=== PATIENT | female | born 1950 | race Caucasian/White ===

== ENCOUNTER 2022-07-01 06:38 | Day surgery (SDC) | payer MEDICARE, BC, SELFPAY ==
[2022-07-01] VITALS (12 sets, daily range): BP systolic 96–133; BP diastolic 63–88; PULSE 48–62; RESP 16; TEMP 36.5–36.6; O2SAT 92–97; BMI 29.9
--- NOTE | 2022-07-01 07:11 | SUR.PREOP ---
Patient provided home covid negative results to RN.
[2022-07-01] MEDS: SODIUM CHLORIDE 0.9 % (FLUSH) 10 ML SYRINGE IVF (07:25)
[2022-07-01] MEDS: LACTATED RINGERS 1000 ML 1,000 ML 100 ML IV (07:25)
[2022-07-01] MEDS: MIDAZOLAM HCL 1 MG/ML inj IVP (07:28)
[2022-07-01] MEDS: fentaNYL 100 MCG/2 ML inj IVP (07:28)
--- NOTE | 2022-07-01 07:28 | SUR.PREOP ---
TIME?OUT:?0728 PT/RN/MDA?VERIFICATION?OF?SURGICAL?SITE,?PROCEDURE,?AND?CONSENT OBTAINED?PRIOR?TO?INVASIVE?PROCEDURE.
--- NOTE | 2022-07-01 08:00 | CRLHL7_ITS ---
For Patients: As a result of the Cures Act, medical imaging exams and procedure reports are released immediately into your electronic medical record. You may view this report before your referring provider. If you have questions, please contact your health care provider. Indication: ORIF Left Distal Radius Technique: Two fluoroscopic images of the left wrist. Fluoroscopic time 34.2 seconds. IMPRESSION: Fluoroscopic guidance for ORIF distal radial fracture. Dictated by René Wallace MD @ 07/01/2022 9:34:37 AM (Electronically Signed)
[2022-07-01] MEDS: CEFAZOLIN 2 GM in 0.9 % SODIUM CHLORIDE Mini-bag 100 ML IVPB (08:20)
--- NOTE | 2022-07-01 08:25 | W.PM.NB ---
Nerve Block Nerve Block Time Seen by Provider: 07:45 Date Seen: 07/01/22 Type of block requested by surgeon for post-operative analgesia: axillary Side: left Time out performed: Yes Verification of patient name: Yes Verification of date of : Yes Site marking: site marked Name of person performing procedure: wu Continuous monitoring Was continuous monitoring of O2 sat, B/P, monitor and storage bin tender, recorded every 15 minutes?: Yes Procedure Checklist: sterile prep, needles and gloves Ultrasound guided. Images saved: Yes Medications given in 5ml increments after negative aspiration: Ropivicaine %: 0.5 mL: 30 Needle gauge: 22 Decadron (mg): 10 Precedex (mcg): 25 Patient tolerated procedure well: Yes Block Charges Block Charge (with Pro Fee): Axillary Nerve Use of Ultrasound Machine for Block: Yes- US Guidance/pain block
--- NOTE | 2022-07-01 09:17 | P.ORPRC_ITS ---
Procedure Note Date of procedure: 07/01/22 Procedure: PREOPERATIVE DIAGNOSES: 1. Left distal radius fracture extra-articular, comminuted dorsal cortex, dorsally displaced, translated, and angulated along with shortening, unstable POSTOPERATIVE DIAGNOSES: 1. Left distal radius fracture extra-articular, comminuted dorsal cortex, dorsally displaced, translated, and angulated along with shortening, unstable NAME OF OPERATION: 1. Left distal radius open reduction with internal fixation of extra-articular, comminuted, unstable distal radius fracture SURGEON: Ryan Lee MD BEHAVIORAL HEALTH TECHNICIAN: Logan Pittman - Of note, an certified dental assistant was critical for this case to aide in patient positioning, limb manipulation, tissue retraction, closure, and splinting. ANESTHESIA: Supraclavicular block EBL: Less than 25 mL IMPLANTS: Synthes dual column volar locking plate with 1.8 mm distal locking pegs and 2.4 and 2.7 mm locking and nonlocking proximal cortical screws. TOURNIQUET: 40 minutes at 250 torr. INDICATIONS: The patient is a pleasant, 72-year-old female who sustained a left wrist injury after a fall approximately 2 days ago. They had difficulty with use of the extremity and deformity. Workup included xrays which revealed an unstable fracture. Given these findings, surgery was recommended to stablize the fracture. FINDINGS: Closed, comminuted dorsal cortex, dorsally angulated, displaced, and translated along the shortened distal radius fracture. PROCEDURE: Following a thorough discussion of risks, benefits, and alternatives, consent was obtained and the operative extremity was marked. The patient was brought to the operating room and placed supine on the operating table. Induction of anesthesia was achieved. Appropriate time out was performed identifying proper patient, site and procedure. 2 g IV Ancef was administered within 1 hour of incision preoperatively. The left upper extremity was prepped and draped in the appropriate sterile fashion using ChloraPrep prep. The limb was exsanguinated and the tourniquet inflated. A longitudinal incision was made overlying the FCR tendon. Sharp incision through skin and subcutaneous tissue allowed identification of the FCR tendon. The superficial sheath was sharply divided, the tendon retracted ulnarly, and the deep fascial sheath also released. The FPL was retracted ulnarly and the pronator quadratus was sharply released from the radial border of the radius and subperiosteally elevated. The fracture was encountered and cleared of interposed periosteum / fracture hematoma. A reduction was performed and the appropriate plate selected. Temporary stabilization allowed C-arm fluoroscopy to confirm proper fracture reduction and plate positioning. The oblong hole was filled with a nonlocking screw followed by multiple distal locking pegs being careful to keep these in subchondral bone and extraarticular. Finally, the remaining proximal shaft screws were drilled and placed. Fluoroscopic imaging confirmed the improved position and showed the fracture to be stable. At this stage, the wound was thoroughly irrigated with normal saline. Closure performed with 0 Vicryl for the pronator quadratus, followed by deflation of the tourniquet. All major bleeding points were cauterized. Closure was then completed with 3-0 Vicryl for the subcutaneous, and 4-0 statafix for subcuticular closure. Dressings were applied along with a volar/dorsal splint. The patient was awoken from anesthesia and transferred to PACU in stable condition. PLAN: 1. Elevate operative extremity. 2. Ice, acetominphen or ibuprofen PRN. 3. Percocet for pain as needed. 4. Follow up with PA visit in 7-12 days for wound check and splint removal. Transition to short-arm cast. Total immobilization time should be 3 weeks. May follow-up with me at the 3 week miller for cast removal, repeat x-rays left wrist- two views (fossa lateral and PA). Likely initiate OT at that 3 week postop time frame
--- NOTE | 2022-07-01 09:39 | P.ANES_ITS ---
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
== END 2022-07-01 11:07 | disposition home or self-care (01) ==
PROVIDERS: Visit Provider Orthopaedic Surgery Sports Medicine
PROC: (CPT 25575; principal; 2022-07-01 08:00)
DX: S52.552A Other extraarticular fracture of lower end of left radius, initial encounter for closed fracture (principal)
CPT/HCPCS: 25607; 01830; 64415; 73110; 76000; 76942; 99100; A4580; C1713; J0690; J1100; J2250; J2405; J2704; J2795; J3010; J7120

== ENCOUNTER 2022-07-22 06:18 | Day surgery (SDC) | payer MEDICARE, BC, SELFPAY ==
[2022-07-22] VITALS (7 sets, daily range): BP systolic 113–160; BP diastolic 61–83; PULSE 56–70; RESP 14–18; TEMP 36.4–36.8; O2SAT 95–98; BMI 28.3
[2022-07-22] MEDS: ETHYL CHLORIDE 1 APPLICATION 1 APPLIC TOPICAL (07:00)
[2022-07-22] MEDS: BUPIVACAINE 0.5% 30 ML INJECTION (07:00)
--- NOTE | 2022-07-22 07:14 | SUR.PREOP ---
SAME DAY SURGERY LOCAL INJECTION SITE VERIFICATION WAS PERFORMED BY SURGEON/PA AND PATIENT PRIOR TO LOCAL ANESTHETIC BEING INJECTED TO OPERATIVE SITE. Left Wrist
--- NOTE | 2022-07-22 07:59 | PM.ORPRC ---
Procedure Note Date of procedure: 07/22/22 Procedure: PREOPERATIVE DIAGNOSIS: 1. Left carpal tunnel syndrome POSTOPERATIVE DIAGNOSIS: 1. Left carpal tunnel syndrome PROCEDURE: 1. Left open carpal tunnel release SURGEON: Ryan Lee MD. OCCUPATIONAL THERAPY ASST: [SE[facility] [place]] ANESTHESIA: Local anesthetic (50:50 mixture of [1]% lidocaine [with epi] and [0.5]% marcaine [plain]) - 10ml total IMPLANTS: None EBL: [2 mL] TOURNIQUET: [None] COMPLICATIONS: None evident INDICATIONS: The patient is a pleasant 72-year-old female who has experienced left hand numbess/tingling affecting the radial 3.5 digits for multiple months. It has progressively gotten worse. Nonoperative management has been tried and failed, and therefore surgery was recommended. DESCRIPTION OF PROCEDURE: Following a thorough discussion of risks, benefits, and alternatives consent was obtained and the operative extremity was marked. The patient was brought to the operating room and placed supine on the operating table. Local anesthesia induction was undertaken in preop holding. No antibiotics were administered as this was planned to be a local case only. Proper time-out was performed identifying proper patient, site, and procedure. The operative extremity was prepped and draped in the appropriate sterile fashion using ChloraPrep. An incision was made in line with the radial border of the ring finger beginning 1 cm distal to the distal wrist crease and progressing for another 2.5cm distal. Caution was taken to stay proximal to Torres's cardinal line. Sharp incision through the skin, subcutaneous tissue, and palmar fascia was performed. The thenar musculature was bluntly elevated off the transverse carpal ligament. The ligament was directly visualized, and divided sharply with a 15 blade. This was released from its most proximal to the most distal extent. Metzenbaum scissor was also utilized to release the fascia extension proximally. We confirmed complete release of the transverse carpal ligament. Closure was performed with 4-O nylon in interrupted fashion. Soft dressings were applied, and the patient was transferred to the recovery room in stable condition. PLAN: 1. Encourage elevation of the operative extremity. 2. Range of motion of the fingers and hand/wrist as tolerated. 3. Ibuprofen/acetaminophen and/or Percocet or [place] as needed for pain control. 4. Follow up with PA visit or nurse visit in 12-16 days for wound check and suture removal.
== END 2022-07-22 08:20 | disposition home or self-care (01) ==
PROVIDERS: Visit Provider Orthopaedic Surgery Sports Medicine
PROC: (CPT 64721; principal; 2022-07-22 07:30)
DX: G56.02 Carpal tunnel syndrome, left upper limb (principal)
CPT/HCPCS: 64721; J3490

== ENCOUNTER 2022-11-24 14:00 | Outpatient (RCR) | payer MEDICARE, BC, SELFPAY ==
[2022-09-03 13:04] VITALS: BP 146/88; PULSE 83; RESP 16; TEMP 36.8; O2SAT 96
[2022-09-04 13:00] VITALS: BP 122/79; PULSE 80; RESP 16; TEMP 36.1; O2SAT 96
[2022-09-15 10:39] VITALS: BP 115/80; PULSE 62; RESP 16; TEMP 36.4; O2SAT 98
[2022-09-22 15:11] VITALS: BP 127/78; PULSE 60; RESP 16; TEMP 36.4; O2SAT 98
[2022-09-30 15:04] VITALS: BP 126/82; PULSE 62; RESP 16; TEMP 36.5; O2SAT 98
[2022-10-06 11:02] VITALS: BP 120/83; PULSE 68; RESP 16; TEMP 36.2; O2SAT 96
[2022-10-14 13:23] VITALS: BP 117/80; PULSE 78; RESP 16; TEMP 36.2; O2SAT 96
[2022-10-20 11:00] VITALS: BP 117/74; PULSE 70; RESP 14; TEMP 36.1; O2SAT 97
[2022-10-27 10:43] VITALS: BP 118/80; PULSE 60; RESP 16; TEMP 35.7; O2SAT 96
[2022-11-03 10:33] VITALS: BP 123/80; PULSE 68; RESP 16; TEMP 35.9; O2SAT 96
[2022-11-03] MEDS: 0.9 % SODIUM CHLORIDE 250 ml IV (11:02)
[2022-11-03] MEDS: SODIUM CHLORIDE 0.9 % (FLUSH) 10 ML SYRINGE IVF (11:02)
[2022-11-10 11:10] VITALS: BP 121/79; PULSE 62; RESP 18; TEMP 36.6; O2SAT 96
[2022-11-17 10:40] VITALS: BP 126/82; PULSE 74; RESP 16; TEMP 35.9; O2SAT 95
[2022-11-24 10:51] VITALS: BP 123/80; PULSE 71; RESP 16; TEMP 36.2; O2SAT 97
[2022-11-24] MEDS: 0.9 % SODIUM CHLORIDE 250 ml IV (10:51)
== END 2023-03-01 23:59 | disposition home or self-care (01) ==
LOC: CCIC 14:00
PROVIDERS: PCP Family Medicine; Referring Provider Family Medicine; Visit Provider Family Medicine
DX: G54.0 Brachial plexus disorders (principal)
CPT/HCPCS: 96365; J2930; J7050

== ENCOUNTER 2024-11-08 14:00 | Outpatient (RCR) | payer MEDICARE, BC, SELFPAY ==
--- NOTE | 2022-07-24 14:03 | OT.OPOE ---
OT Outpatient Ortho Eval OT Outpatient Ortho Eval Start: 07/23/22 18:48 Freq: Status: Active Protocol: Document 07/24/22 07:43 AMB (Rec: 07/24/22 13:55 AMB [id number]) E-signed By Radha Dickinson, OTR/L, CLT, UNIVERSITY MANAGER OT OP Ortho Eval Details Type Type Eval Complexity Medium Insurance Information Insurance Information Medicare B Outpatient History/Precautions Current Condition/Medical Diagnosis Referring Provider Dr Lee Treatment Diagnosis LUE wrist DR aly s/p ORIF, CTR Date of Onset DOI: 06/29/22, DOS: 07/01/22, CTR = 07/22/22 Other Conditions PMH is relatively unremarkable but includes kidney stones. Pt tripped on 06/29/22 while walking her dog sustaining a LUE DR aly. Pt underwent ORIF with Dr Lee on 07/01/22. She returned to Ortho on 07/09 with complaints of buring / nerve pain in the shoulder and elbow. It was thought to be related to prolonged sling use and not moving her arm, cast was replaced and pt was encouraged to move shoulder, elbow and fingers. Pt returned on the with more discomfort in shoulder, elbow , hand. Dr Rubio suspected abnormal nerve response from the nerve block, cast was modified, she returned again on the , still no better. It was thought that maybe she had developed median nn compression so Dr Lee performed a CTR on 07/22/22. Medical/Functional History Medical History Reviewed Yes Oriented Mental Status No Concerns Ortho Subjective Subjective Subjective Pt states he pain is unbearable, 10/10 constant, mostly in the upper arm and shoulder, some in the forearm and hand. Pt states she has difficulty sleeping and needs help with everything as she can't use her left hand, states her hand just drops when she tries to use it. Pain Assessment Pain Present Pain Present Pain Reported Location Left Arm Description Burning,Radiating,Sharp,Dull, Achy Intensity 10 Shoulder Goniometric ROM Shoulder Left Testing Position Supine Active Flexion (150-180 degrees) 160 Query Text: Elbow Goniometric Elbow Left Testing Position Sitting Active Flexion (135-150 degrees) 40 L Active Extension (0 degrees) 0 H Active Pronation 20 Active Supination 20 Passive Flexion (135-150 degrees) 100 L Passive Extension (0 degrees) 0 H Passive Pronation (70-90 degrees) 45 L Passive Supination 30 ROM Limitations Muscle Weakness,Pain Wrist Goniometric Wrist Left Active Flexion (70-90 degrees) 30 L Active Extension (60-70 degrees) 5 L Goniometric Comments Goniometric Comments Goniometric Comments 07/24/22 Pt has approximately 50deg of MP flex, 40-50 of PIP flex and 0 deg of DIP flexion throughout the LUE 2-5th digits, 0 deg of active motion in the LUE thumb. Trace active extension throughout the MPs and PIPs, 0 in DIPs. Edema Assessment Location Left Hand Edema Type Pitting Degree 3+ Query Text:1+ (Trace) Mild pitting, slight indentation, rapid return to normal 2+ (Mild) Moderate pitting, 4mm indent, rebounds in a few seconds 3+ (Moderate) Deep pitting, 6mm indent, 30 seconds 4+ (Severe) Very deep pitting, 8 mm indent, > 30 seconds to return to normal Edema Appearance Tight,Puffy Description Subjective Edema Description Pain,Burning,Tightness Additional Information Comments 07/24/22 Circumferential measurements were taken of BUE hands: base of 3rd finger on RUE is 6.2cm, LUE is 7.7cm, MPs on the RUE is 18.8cm, LUE is 20.5cm, Palm (through web space) on the RUE is 18.8cm, LUE is 20.8cm, wrist on the RUE is 16.5cm, LUE is 19.0cm. LUE total hand measurements are 7.7cm larger than the RUE. OT Objective Data Hand Hand Dominance Right Observations/Posture Objective Observations 07/24/22 Pt demonstrates very guarded posture, forward shoulders, RUE adducted with shoulder IR, elbow flexed, hand and forearm in rigid splint, RUE in sling. Pt experiences pain with most movement out of this position, especially at the shoulder. Skin/Wounds Skin Integrity Comments 07/24/22 ORIF incision is healing, still covered with surgical film. CTR incision is still closed with sutures. No draining from either site, no abnormal redness, no s/s of infection. Sensation Sensation Assessment Summary Comments 07/24/22 Monofilament testing = 6.51 throughout tips of index , long, and ring fingers, no detection at the thumb or pinky. Pt describes tingling and numbness at the back of the arm all the way down the arm into the hand. Pt demonstrates weakness throughout the brachioradialis and into the extrinsic wrist/ finger extensors. OT Problems Problems Problems Decreased Strength,Decreased Range of Motion,Sensory Sensitivity,Gripping,Pinching Other Problems Opening Containers,Dressing, Computer Patient Potential Good Assessment Assessment Assessment Pt presents to OT s/p 3 weeks and 2 days s/p LUE wrist ORIF and 2 days s/p LUE CTR with pain, swelling, paresthesia, weakness, and limited AROM of the LUE following the wrist fx with nerve related complications which resulted in CTR. Sxs appear to indicate a disruption of the radial nerve / abnormal nerve response following nerve block . Due to these impairments, pt is limited in her abilities to carry out her normal ADLs and IADLs and is also struggling with sleep and comfort. Pt's is very supportive and helpful, willing to help pt with HEP as well as self cares, etc. Pt herself is very weapy today, but also very motivated and asks many good questions. Pt will benefit from skilled OT intervention to address deficits in order to restore full, pain-free use of LUE and return to PLOF. OT Outpatient Treatment Plan Ortho Barriers Barriers to Goal Attainment 07/24/22 Severe limitations in nerve function / sensitivity, pain, significant, pitting edema. Occupational Therapy Treatment Plan - OP Potential Rehabilitation Potential Good Set Goals Goals Set with Patient Yes Goals Goals 1. Pt will be independent and compliant with HEP in order to resume full, pain-free use of the involved UE. 3 weeks 2. Pt will verbalize a reduction of her average pain from a current 10/10 to no greater than a 2/10 in order to improve ability to sleep and to increase ability to use her LUE during ADLs and IADLs . 3. Pt will demonstrate full, pain-free AROM of the involved UE in order to improve ability to grasp and hold. 10 weeks 4. 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 16 weeks. Target Date 10/23/22 Progress set Treatment Plan Treatment Plan Evaluation,Edema Control,Joint Mobilization,Manual Therapy, Splinting,Ultrasound,Wound Care/Scar Management, Therapeutic Exercise, Therapeutic Activities,Self- Care/Home Management,Caregiver Training,Education Expected Frequency 1-2x Week Expected Duration 12 - 16 wk Certification Certification I Certify That: Therapy Services Provided, Therapy Plan Established, Therapy Plan Reviewed Recertification Information Recertification Information Initial Certification Date 07/24/22 Recertification Due Date 10/22/22 Reasons to Continue Skilled Therapy Initiated OT today to address LUE pain, swelling, paresthesia, ROM and strength following DR aly with ORIF and CTR. Rehabilitation Potential Good Continued Plan of Care and Interventions Please see above Provider Signature Shows Agreement With POC & Medical Necessity Physician Comment/Change Comment or Changes Physician NPI Number #
--- NOTE | 2022-10-23 00:59 | OT.OPODN2 ---
OT Outpatient Ortho Daily Note OT Outpatient Ortho Daily Note Start: 07/23/22 18:48 Freq: Status: Active Protocol: Document 10/28/22 15:12 AMB (Rec: 10/28/22 15:17 AMB [id number]) E-signed By Radha Dickinson, OTR/L, CLT, VALVE MAKER Type of Note Type of Note Type of Note Daily Note,Recert/Progress Note Visit Number [id number] Insurance Information Insurance Information Medicare B Outpatient History/Precautions Current Condition/Medical Diagnosis Referring Provider Dr Lee Treatment Diagnosis LUE wrist DR aly s/p ORIF, CTR Date of Onset DOI: 06/29/22, DOS: 07/01/22, CTR = 07/22/22 Other Conditions PMH is relatively unremarkable but includes kidney stones. Pt tripped on 06/29/22 while walking her dog sustaining a LUE DR aly. Pt underwent ORIF with Dr Lee on 07/01/22. She returned to Ortho on 07/09 with complaints of buring / nerve pain in the shoulder and elbow. It was thought to be related to prolonged sling use and not moving her arm, cast was replaced and pt was encouraged to move shoulder, elbow and fingers. Pt returned on the with more discomfort in shoulder, elbow , hand. Dr Rubio suspected abnormal nerve response from the nerve block, cast was modified, she returned again on the , still no better. It was thought that maybe she had developed median nn compression so Dr Lee performed a CTR on 07/22/22. Medical/Functional History Medical History Reviewed Yes Oriented Mental Status No Concerns Ortho Subjective Subjective Subjective No new complaints, pt had infusion yesterday, noticing red, warm face, flushed, states this is normal for the day after infusion. Pain Assessment Pain Present Pain Present Pain Reported Location Left Arm Description Burning,Radiating,Sharp,Dull, Achy Intensity 5 OT OP Daily Ortho Note/Assessment Therapeutic Exercise Therapeutic Exercise Minutes (minutes) 20 Therapeutic Exercise Comments Completed AROM of LUE wrist flexion and extension, supported and light assistance for UD and RD (pt is now able to complete wrist flex and extension anti-gravity using wedge to prop forearm up. Also completed forearm pro/ supination resting on table top, active elbow flexion and extension. Towel slides for finger flexion and extension ( extension is marginal but appearing to show slight active firing of the mm) Pt completed 10 reps x 2 of each of the above. Seated 1# dowel AAROM for shoulder flexion with palm up and with palm down, also completed bilateral integration with 9# ball lifts forward, off to the side and circular, 10 reps each. Manual Therapy Manual Therapy Minutes (minutes) 25 Manual Therapy Comments Provided MT with focus on retrograde massage and gentle AAROM / PROM of the LUE wrist, fingers, and thumb. Focus on LLPS to each finger, all joints, isolated by joint, then by finger, then composite for all digits / joints. Shoulder Goniometric ROM Shoulder Left Reason Not Measured Within Functional Limits Testing Position Sitting Elbow Goniometric Elbow Left Reason Not Measured Within Functional Limits Testing Position Sitting ROM Limitations Muscle Weakness,Pain Wrist Goniometric Wrist Left ROM Limitations Muscle Weakness Goniometric Comments Goniometric Comments Goniometric Comments 10/28/22 PROM of the LUE IF MP flexion is 70, MF is 85, RF is 70, and LF is 80. PROM LUE IF PIP joint is 70, MF is 65, RF is 60, LF is 70. PROM of the LUE DIP flexion is 40, MF is 65, RF is 60, and LF is 40. AROM of th eLUE wrist flexion is from 40 deg of flexion to 25 deg of extension past midline against gravity, AROM o fLUE wrist ext is from 4o deg of flexion to 45 deg of extension against gravity. Pt is now able to demonstrate AROM to be WFL throughout the LUE shoulder, elbow and forearm. Pt demonstrates ~20 deg of active flexion of 2nd - 5th MPs. Pt demonstrates PROM of the tume IP to 30 deg and MP to 25 deg. Minimal active ROM is noted at the thumb. PROM is still quite painful throughout all digits / joints, thumb is the most painful. Pt also experiences significant rebound pain following LLPS of all joints. 09/08/22 Pt is now able to tolerate passive MP flexion at the IF to 65, MF to 70, RF to 75, and SF to 85. Tolerates passive PIP of the IF to 45, MF to 40, RF to 55, and SF to 75. Noting finger abd / add 5 -10 deg. 08/18/22 Follow session, pt is able to actively move shoulder through full flexion, elbow 0 -110, wrist (in gravity eliminated position) flexion to 50 and extension from 50 degrees of flexion to ~ 10 of extension. 07/24/22 Pt has approximately 50deg of MP flex, 40-50 of PIP flex and 0 deg of DIP flexion throughout the LUE 2-5th digits, 0 deg of active motion in the LUE thumb. Trace active extension throughout the MPs and PIPs, 0 in DIPs. Edema Assessment Location Left Hand Edema Type Non-Pitting Degree None Query Text:1+ (Trace) Mild pitting, slight indentation, rapid return to normal 2+ (Mild) Moderate pitting, 4mm indent, rebounds in a few seconds 3+ (Moderate) Deep pitting, 6mm indent, 30 seconds 4+ (Severe) Very deep pitting, 8 mm indent, > 30 seconds to return to normal Edema Appearance Tight,Puffy Description Subjective Edema Description Pain,Burning,Tightness Additional Information Comments 10/23/22 Circumferential measurements were taken of the LUE: Base of 3rd finger is now 6.8cm, MPs is 18.7cm, Palm is 18.5cm, and wrist is 18. 5cm. Total measurement of the LUE is only 2.2cm larger than the LUE vs 7.7cm larger on IE . 07/24/22 Circumferential measurements were taken of BUE hands: base of 3rd finger on RUE is 6.2cm, LUE is 7.7cm, MPs on the RUE is 18.8cm, LUE is 20.5cm, Palm (through web space) on the RUE is 18.8cm, LUE is 20.8cm, wrist on the RUE is 16.5cm, LUE is 19.0cm. LUE total hand measurements are 7.7cm larger than the RUE. OT Objective Data Hand Hand Dominance Right Observations/Posture Objective Observations 10/23/22 Pt is now able to tolerate PROM of the LUE including pressure and skin manipulation, she has been able to use a static progression flexion glove for LLPS of the 2nd-5th digits, initially pt was not able to tolerate compression glove and very little tissue manipulation. 09/08/22 Pt is much less guarded, improved ability to move arm with natural pattern during gait, less guarded. 07/24/22 Pt demonstrates very guarded posture, forward shoulders, RUE adducted with shoulder IR, elbow flexed, hand and forearm in rigid splint, RUE in sling. Pt experiences pain with most movement out of this position, especially at the shoulder. Skin/Wounds Skin Integrity Comments 09/08/22 CTR and ORIF incisions are well healed. 07/24/22 ORIF incision is healing, still covered with surgical film. CTR incision is still closed with sutures. No draining from either site, no abnormal redness, no s/s of infection. Sensation Sensation Assessment Summary Comments 10/23/22 No significant changes in monofilament testing, however, pt is no longer complaining of numbness and tingling along the back of the arm, thumb is still quite hypersensitive, especially with deep pressure and stretching of MP and IP joints . 07/24/22 Monofilament testing = 6.51 throughout tips of index , long, and ring fingers, no detection at the thumb or pinky. Pt describes tingling and numbness at the back of the arm all the way down the arm into the hand. Pt demonstrates weakness throughout the brachioradialis and into the extrinsic wrist/ finger extensors. OT Problems Problems Problems Decreased Strength,Decreased Range of Motion,Sensory Sensitivity,Gripping,Pinching Other Problems Opening Containers,Dressing, Computer,Fasteners Patient Potential Good Assessment Assessment Assessment Pt demonstrates a significant improvement in ability to move her LUE. Pt now demonstrates AROM to be WFL Throughout the LUE elbow and shoulder, showing nice AROM of the wrist (antigravity) and very slight AROM is emerging in the finger flexors, not noted in thumb. Also continue to note absent active finger extension . Pt is now able to incorporate her LUE into light , functional tasks for an assist, able to demonstrate bilateral integration with ball and wand activity and is no longer having constant pain . Pt has been very compliant and consistent with home program and clinic visits and recommendations. Pt has great support at home and sees value in her therapy. Though she has made great progress in many areas, actual function of the LUE is still quite limited. Pt will benefit from continued skilled OT intervention to address pain, swelling, ROM and function in the LUE. OT Outpatient Treatment Plan Ortho Barriers Barriers to Goal Attainment 07/24/22 Severe limitations in nerve function / sensitivity, pain, significant, pitting edema. Occupational Therapy Treatment Plan - OP Potential Rehabilitation Potential Good Set Goals Goals Set with Patient Yes Goals Goals All goals were updated on 10/23 1. Pt will be independent and compliant with HEP in order to resume full, pain-free use of the involved UE. 3 weeks. This goal in ongoing, pt is compliant with HEP and all clinic visits and recommendations. 2. Pt will verbalize a reduction of her average pain from a current 10/10 to no greater than a 2/10 in order to improve ability to sleep and to increase ability to use her LUE during ADLs and IADLs . Pt is progressing towards this goal, pain is reduced to ~ 5/10, she is sleeping better and is attempting to use her LUE with ADLs and IADLs. This goal remains appropriate. 3. Pt will demonstrate full, pain-free AROM of the involved UE in order to improve ability to grasp and hold. 10 weeks Pt showing progress with full AROM of the LUE shoulder and elbow, continues to work on the wrist and hand. This goal remains appropriate . 4. 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 16 weeks. This goal remains appropriate. Target Date 01/23/23 Progress set Treatment Plan Treatment Plan Evaluation,Edema Control,Joint Mobilization,Manual Therapy, Splinting,Ultrasound,Wound Care/Scar Management, Therapeutic Exercise, Therapeutic Activities,Self- Care/Home Management,Caregiver Training,Education Expected Frequency 1-2x Week Expected Duration 12 - 16 wk OT Treatment Minutes Treatment Minutes Timed Treatment Minutes 48 Total Treatment Minutes 48 Occupational Therapy Billing Units Billing Units Manual Therapy 2 Therapeutic Exercise 1 Certification Certification I Certify That: Therapy Services Provided, Therapy Plan Established, Therapy Plan Reviewed Recertification Information Recertification Information Initial Certification Date 07/24/22 Recertification Start Date 10/22/22 Recertification Due Date 01/22/23
--- NOTE | 2023-02-03 17:14 | OT.OPODN2 ---
OT Outpatient Ortho Daily Note OT Outpatient Ortho Daily Note Start: 07/23/22 18:48 Freq: Status: Active Protocol: Document 01/29/23 09:55 AMB (Rec: 01/29/23 12:12 AMB [id number]) E-signed By Radha Dickinson, OTR/L, CLT, DETECTIVE AND INTELLIGENCE ANALYST Type of Note Type of Note Type of Note Daily Note Visit Number [id number] Comments Recert due 01/22/23 Insurance Information Insurance Information Medicare B Insurance Information Comments Will have repeat EMG on 12/17 along with re-check in [place] Outpatient History/Precautions Current Condition/Medical Diagnosis Referring Provider Dr Lee Treatment Diagnosis LUE wrist DR aly s/p ORIF, CTR Date of Onset DOI: 06/29/22, DOS: 07/01/22, CTR = 07/22/22 Other Conditions PMH is relatively unremarkable but includes kidney stones. Pt tripped on 06/29/22 while walking her dog sustaining a LUE DR aly. Pt underwent ORIF with Dr Lee on 07/01/22. She returned to Ortho on 07/09 with complaints of buring / nerve pain in the shoulder and elbow. It was thought to be related to prolonged sling use and not moving her arm, cast was replaced and pt was encouraged to move shoulder, elbow and fingers. Pt returned on the with more discomfort in shoulder, elbow , hand. Dr Rubio suspected abnormal nerve response from the nerve block, cast was modified, she returned again on the , still no better. It was thought that maybe she had developed median nn compression so Dr Lee performed a CTR on 07/22/22. Medical/Functional History Medical History Reviewed Yes Oriented Mental Status No Concerns Ortho Subjective Subjective Subjective Pt uses hand as much as she can, incorporating into her cooking routine, opens her car door, holds small hand wts during Sr exercise class, etc. Working hard with putty, and continues to find benefit with her mobilzation orthosis. Pt continues to struggle with pain, especially in the thumb MP and CMC areas, denies ever being diagnosed with arthritis in her hand prior to this injury. Pain Assessment Pain Present Pain Present Pain Reported Location Left Arm Description Burning,Radiating,Sharp,Dull, Achy Intensity 5 OT OP Daily Ortho Note/Assessment Therapeutic Exercise Therapeutic Exercise Minutes (minutes) 13 Therapeutic Exercise Comments - picking up and placing various sized objects with reach and grasp / pinch motions at various levels - activities to encourage MP extension - activities to encourage active PIP and DIP flexion. Manual Therapy Manual Therapy Minutes (minutes) 30 Manual Therapy Comments Provided MT with focus on retrograde massage and gentle AAROM / PROM of the LUE fingers, and thumb. Focus on LLPS to each finger and thumb, all joints, isolated by joint , then by finger, then composite for all digits / joints. Really working hard on improving PIP and DIP joint mobility of all fingers and MP /IP of thumb. Wrist Goniometric Wrist Left ROM Limitations Muscle Weakness Goniometric Comments Goniometric Comments Goniometric Comments 01/29/23 AROM of the LUE MPs: IF=-45-70, MF= -65- 75, RF= -60-80, SF -60-80. AROM of the LUE PIP: IF=-5-45, MF=-5- 45, RF=0-40, SF=0-40. Thumb: 20 deg of palmar abd and 10 radial abd 12/18/22 IP of the LUE 0~ 5, MP 0-5 10/28/22 PROM of the LUE IF MP flexion is 70, MF is 85, RF is 70, and LF is 80. PROM LUE IF PIP joint is 70, MF is 65, RF is 60, LF is 70. PROM of the LUE DIP flexion is 40, MF is 65, RF is 60, and LF is 40. AROM of th eLUE wrist flexion is from 40 deg of flexion to 25 deg of extension past midline against gravity, AROM o fLUE wrist ext is from 4o deg of flexion to 45 deg of extension against gravity. Pt is now able to demonstrate AROM to be WFL throughout the LUE shoulder, elbow and forearm. Pt demonstrates ~20 deg of active flexion of 2nd - 5th MPs. Pt demonstrates PROM of the tume IP to 30 deg and MP to 25 deg. Minimal active ROM is noted at the thumb. PROM is still quite painful throughout all digits / joints, thumb is the most painful. Pt also experiences significant rebound pain following LLPS of all joints. 09/08/22 Pt is now able to tolerate passive MP flexion at the IF to 65, MF to 70, RF to 75, and SF to 85. Tolerates passive PIP of the IF to 45, MF to 40, RF to 55, and SF to 75. Noting finger abd / add 5 -10 deg. 08/18/22 Follow session, pt is able to actively move shoulder through full flexion, elbow 0 -110, wrist (in gravity eliminated position) flexion to 50 and extension from 50 degrees of flexion to ~ 10 of extension. 07/24/22 Pt has approximately 50deg of MP flex, 40-50 of PIP flex and 0 deg of DIP flexion throughout the LUE 2-5th digits, 0 deg of active motion in the LUE thumb. Trace active extension throughout the MPs and PIPs, 0 in DIPs. Hand Pinch/Pbx Manager Strength Hand Right Pbx Manager Strength Position 1 (lbs) 52 Lateral Pinch Strength (lbs) 17 Left Pbx Manager Strength Position 1 (lbs) 14 Lateral Pinch Strength (lbs) 6 Edema Assessment Location Left Hand Degree None Query Text:1+ (Trace) Mild pitting, slight indentation, rapid return to normal 2+ (Mild) Moderate pitting, 4mm indent, rebounds in a few seconds 3+ (Moderate) Deep pitting, 6mm indent, 30 seconds 4+ (Severe) Very deep pitting, 8 mm indent, > 30 seconds to return to normal Edema Appearance Puffy Additional Information Comments 12/18/22 Edema has reduced significantly with the steroid infusions, very mild, fingers and thumb, palm. 10/23/22 Circumferential measurements were taken of the LUE: Base of 3rd finger is now 6.8cm, MPs is 18.7cm, Palm is 18.5cm, and wrist is 18. 5cm. Total measurement of the LUE is only 2.2cm larger than the LUE vs 7.7cm larger on IE . 07/24/22 Circumferential measurements were taken of BUE hands: base of 3rd finger on RUE is 6.2cm, LUE is 7.7cm, MPs on the RUE is 18.8cm, LUE is 20.5cm, Palm (through web space) on the RUE is 18.8cm, LUE is 20.8cm, wrist on the RUE is 16.5cm, LUE is 19.0cm. LUE total hand measurements are 7.7cm larger than the RUE. OT Objective Data Hand Hand Dominance Right Sensation Sensation Assessment Summary Comments 01/22/23 Notable improvement in monofilament detection at finger tips. Th is now 4.56, IF is 3.61, MF is 3.61, RF is 2.83, and SF is 2.83. Also assessed warm/cold which was inconsistent but approximately 50% accurate in all digits. 10/23/22 No significant changes in monofilament testing, however, pt is no longer complaining of numbness and tingling along the back of the arm, thumb is still quite hypersensitive, especially with deep pressure and stretching of MP and IP joints . 07/24/22 Monofilament testing = 6.51 throughout tips of index , long, and ring fingers, no detection at the thumb or pinky. Pt describes tingling and numbness at the back of the arm all the way down the arm into the hand. Pt demonstrates weakness throughout the brachioradialis and into the extrinsic wrist/ finger extensors. OT Problems Problems Patient Potential Good Assessment Assessment Assessment Measurements indicated nice gains in active motions at the MP and PIP joints of fingers, thumb motion improving as well. Pt does have significant pain in her MP and CMC joints of her left thumb, seems to be more related to the joints vs nerve pain? Will continue to monitor. OT Outpatient Treatment Plan Ortho Barriers Barriers to Goal Attainment 07/24/22 Severe limitations in nerve function / sensitivity, pain, significant, pitting edema. Occupational Therapy Treatment Plan - OP Potential Rehabilitation Potential Good Set Goals Goals Set with Patient Yes Goals Goals All goals were updated on 10/23 1. Pt will be independent and compliant with HEP in order to resume full, pain-free use of the involved UE. 3 weeks. This goal in ongoing, pt is compliant with HEP and all clinic visits and recommendations. 2. Pt will verbalize a reduction of her average pain from a current 10/10 to no greater than a 2/10 in order to improve ability to sleep and to increase ability to use her LUE during ADLs and IADLs . Pt is progressing towards this goal, pain is reduced to ~ 5/10, she is sleeping better and is attempting to use her LUE with ADLs and IADLs. This goal remains appropriate. 3. Pt will demonstrate full, pain-free AROM of the involved UE in order to improve ability to grasp and hold. 10 weeks Pt showing progress with full AROM of the LUE shoulder and elbow, continues to work on the wrist and hand. This goal remains appropriate . 4. 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 16 weeks. This goal remains appropriate. Target Date 01/23/23 Progress set Treatment Plan Treatment Plan Evaluation,Edema Control,Joint Mobilization,Manual Therapy, Splinting,Ultrasound,Wound Care/Scar Management, Therapeutic Exercise, Therapeutic Activities,Self- Care/Home Management,Caregiver Training,Education Expected Frequency 1-2x Week Expected Duration 12 - 16 wk OT Treatment Minutes Treatment Minutes Timed Treatment Minutes 46 Total Treatment Minutes 46 Occupational Therapy Billing Units Billing Units Manual Therapy 2 Therapeutic Exercise 1
--- NOTE | 2023-04-08 13:50 | OT.OPODN2 ---
OT Outpatient Ortho Daily Note OT Outpatient Ortho Daily Note Start: 07/23/22 18:48 Freq: Status: Active Protocol: Document 04/08/23 10:49 AMB (Rec: 04/08/23 13:46 AMB [id number]) E-signed By Radha Dickinson, OTR/L, CLT, DIRECT CUSTOMER SERVICE REPRESENTATIVE Type of Note Type of Note Type of Note Daily Note,Recert/Progress Note Visit Number [id number] Comments Recert due 07/08/23, MC 10 visit PN Insurance Information Insurance Information Medicare B Insurance Information Comments Re-check with neurology in April Outpatient History/Precautions Current Condition/Medical Diagnosis Referring Provider Dr Lee Treatment Diagnosis LUE wrist DR aly s/p ORIF, CTR Date of Onset DOI: 06/29/22, DOS: 07/01/22, CTR = 07/22/22 Other Precautions Sees Neurology in April Other Conditions PMH is relatively unremarkable but includes kidney stones. Pt tripped on 06/29/22 while walking her dog sustaining a LUE DR aly. Pt underwent ORIF with Dr Lee on 07/01/22. She returned to Ortho on 07/09 with complaints of buring / nerve pain in the shoulder and elbow. It was thought to be related to prolonged sling use and not moving her arm, cast was replaced and pt was encouraged to move shoulder, elbow and fingers. Pt returned on the with more discomfort in shoulder, elbow , hand. Dr Rubio suspected abnormal nerve response from the nerve block, cast was modified, she returned again on the , still no better. It was thought that maybe she had developed median nn compression so Dr Lee performed a CTR on 07/22/22. Medical/Functional History Medical History Reviewed Yes Social History Employment Status Retired Fitness Pt attends senior exercise classes Ortho Subjective Subjective Subjective Pt continues to have pain at all times in her left hand, random, shooting pains at rest and sometimes with activities , doesn't seem to matter. Pt continues to work with her various dynamic splints working on improving ROM of all MPS, PIPs, DIPs, IP. Thumb pain is problematic, very hard to stretch this digit due to pain. Pt uses her LUE as much as she can, incorporates it into ADLs as much as she can, ie uses it to open assist with opening car door, holds small weight in her hand ( carefully) while participating in [employer] (senior exercise program). Pt has also been working with her TENS unit to see if this will help with her pain. Pain Assessment Pain Present Pain Present Pain Reported Location Left Arm Description Burning,Radiating,Sharp,Dull, Achy Intensity 5 OT OP Daily Ortho Note/Assessment Neuromuscular Intervention Neuromuscular Intervention Minutes ( 33 minutes) Neuromuscular Intervention Completed simulated scrub and carry routine for dynamic activity / WB and joint distraction / mobilization of the LUE.in attempts to reduce pain response in the LUE. Completed mirror therapy today with focus on guided imagery to facilitate AROM of the LUE. Pt completed 10 minutes of active RUE motion including isolated finger extension, thumb extension, composite finger flexion and extension, wrist flexion and extension and forearm pronation and supination while utilizing the mirror for guided imagery and active motion of the LUE which was hidden from sight with the intent of improving motor response of the LUE. Also completed desensitization techniques for pain management: joint compression / distraction, WB through the extremity on tabletop and on 9 ball with fwd/bwd and circular motions. Manual Therapy Manual Therapy Minutes (minutes) 20 Manual Therapy Comments Utilized TENS for pain control while providing MT with focus on retrograde massage and gentle AAROM / PROM of the LUE fingers, and thumb. Focus on LLPS to each finger and thumb , all joints, isolated by joint, then by finger, then composite for all digits / joints. Continue to focus on improving PIP and DIP joint mobility of all fingers and MP /IP of thumb in order to be most successful with functional return once nerve regeneration / function occurs . Shoulder Goniometric ROM Shoulder Left Reason Not Measured Within Functional Limits Testing Position Sitting Shoulder Gross Strength Shoulder Left Testing Position Seated Flexion 4 Good Extension 4 Good Abduction 4 Good Adduction 4 Good External Rotation 4 Good Internal Rotation 4 Good Elbow Goniometric Elbow Left Reason Not Measured Within Functional Limits Testing Position Sitting Elbow/Forearm Gross Strength Elbow and Forearm Left Flexion 4 Good Extension 4 Good Pronation 3 Fair Supination 3 Fair Wrist Goniometric Wrist Left Active Flexion (70-90 degrees) 60 L Active Extension (60-70 degrees) 75 H Active Ulnar Deviation (20-30 degrees) 30 Active Radial Deviation (15-20 degrees) 25 H ROM Limitations Muscle Weakness Wrist Gross Strength Wrist Left Flexion 3+ Fair+ Extension 3+ Fair+ Ulnar Deviation 3 Fair Radial Deviation 3 Fair Goniometric Comments Goniometric Comments Goniometric Comments 04/08/23AROM of the LUE MPs: IF is -50-70, MF is -60-85, RF is -65-85, SF is -60-75. AROM of the LUE PIPs: IF is 0-45, MF is -25-65, RF is 0-45, DIP is 0-45. AROM of the LUE DIPs : IF is 0-10 (very painful), MF is 0 (painful), RF is 0-35, SF is 0-45. Thumb: MP flexion is 30, PIP flexion is 10 ( very painful) palmar abd is 20 deg, radial abd is 10 deg. 03/17/23 AROM of the LUE MPs: IF is -45-70. MF is -60-85, RF is -55-85, SF is -60-85. AROM of the LUE PIPs: IF is 0- 55, MF is 0-70, RF is 0-50, SF is 0-45, thumb palmar abd is 20deg, rdial abd 10 deg. 01/29/23 AROM of the LUE MPs: IF=-45-70, MF= -65- 75, RF= -60-80, SF -60-80. AROM of the LUE PIP: IF=-5-45, MF=-5- 45, RF=0-40, SF=0-40. Thumb: 20 deg of palmar abd and 10 radial abd 12/18/22 IP of the LUE 0~ 5, MP 0-5 10/28/22 PROM of the LUE IF MP flexion is 70, MF is 85, RF is 70, and LF is 80. PROM LUE IF PIP joint is 70, MF is 65, RF is 60, LF is 70. PROM of the LUE DIP flexion is 40, MF is 65, RF is 60, and LF is 40. AROM of th eLUE wrist flexion is from 40 deg of flexion to 25 deg of extension past midline against gravity, AROM o fLUE wrist ext is from 4o deg of flexion to 45 deg of extension against gravity. Pt is now able to demonstrate AROM to be WFL throughout the LUE shoulder, elbow and forearm. Pt demonstrates ~20 deg of active flexion of 2nd - 5th MPs. Pt demonstrates PROM of the tume IP to 30 deg and MP to 25 deg. Minimal active ROM is noted at the thumb. PROM is still quite painful throughout all digits / joints, thumb is the most painful. Pt also experiences significant rebound pain following LLPS of all joints. 09/08/22 Pt is now able to tolerate passive MP flexion at the IF to 65, MF to 70, RF to 75, and SF to 85. Tolerates passive PIP of the IF to 45, MF to 40, RF to 55, and SF to 75. Noting finger abd / add 5 -10 deg. 08/18/22 Follow session, pt is able to actively move shoulder through full flexion, elbow 0 -110, wrist (in gravity eliminated position) flexion to 50 and extension from 50 degrees of flexion to ~ 10 of extension. 07/24/22 Pt has approximately 50deg of MP flex, 40-50 of PIP flex and 0 deg of DIP flexion throughout the LUE 2-5th digits, 0 deg of active motion in the LUE thumb. Trace active extension throughout the MPs and PIPs, 0 in DIPs. [ End ] Hand Pinch/Operations/Dispatch Strength Hand Right Operations/Dispatch Strength Position 1 (lbs) 52 Lateral Pinch Strength (lbs) 17 Left Operations/Dispatch Strength Position 1 (lbs) 21 Lateral Pinch Strength (lbs) 7 Edema Assessment Location Left Hand Degree None Query Text:1+ (Trace) Mild pitting, slight indentation, rapid return to normal 2+ (Mild) Moderate pitting, 4mm indent, rebounds in a few seconds 3+ (Moderate) Deep pitting, 6mm indent, 30 seconds 4+ (Severe) Very deep pitting, 8 mm indent, > 30 seconds to return to normal Edema Appearance Puffy Description Subjective Edema Description Pain,Burning,Tightness Additional Information Comments 12/18/22 Edema has reduced significantly with the steroid infusions, very mild, fingers and thumb, palm. 10/23/22 Circumferential measurements were taken of the LUE: Base of 3rd finger is now 6.8cm, MPs is 18.7cm, Palm is 18.5cm, and wrist is 18. 5cm. Total measurement of the LUE is only 2.2cm larger than the LUE vs 7.7cm larger on IE . 07/24/22 Circumferential measurements were taken of BUE hands: base of 3rd finger on RUE is 6.2cm, LUE is 7.7cm, MPs on the RUE is 18.8cm, LUE is 20.5cm, Palm (through web space) on the RUE is 18.8cm, LUE is 20.8cm, wrist on the RUE is 16.5cm, LUE is 19.0cm. LUE total hand measurements are 7.7cm larger than the RUE. OT Objective Data Hand Hand Dominance Right Observations/Posture Objective Observations 04/08/23 Pt demonstrates improved posture with all tasks, shoulder and elbow move in nicole, in a natural flow with her gait pattern, forearm is supinated, finger and thumb are very stiff. 12/11/22 Pt is now able to use a modified but functional pincher grasp to meat pickler and stack 3 dice, also able to perform resisted pinch strength with a yellow clothes pin. 10/23/22 Pt is now able to tolerate PROM of the LUE including pressure and skin manipulation, she has been able to use a static progression flexion glove for LLPS of the 2nd-5th digits, initially pt was not able to tolerate compression glove and very little tissue manipulation. 09/08/22 Pt is much less guarded, improved ability to move arm with natural pattern during gait, less guarded. 07/24/22 Pt demonstrates very guarded posture, forward shoulders, RUE adducted with shoulder IR, elbow flexed, hand and forearm in rigid splint, RUE in sling. Pt experiences pain with most movement out of this position, especially at the shoulder. Skin/Wounds Skin Integrity Comments 04/08/23 Skin condition is good , no abrasions or breakdown, color is somewhat flushed when compared to RUE. 09/08/22 CTR and ORIF incisions are well healed. 07/24/22 ORIF incision is healing, still covered with surgical film. CTR incision is still closed with sutures. No draining from either site, no abnormal redness, no s/s of infection. Sensation Sensation Assessment Summary Comments 04/08/23 Monofilament detection at finger tips: Th is 3.61, IF is 3.61, MF is 3.61, RF is 2.83 and SF is 2.83. 01/22/23 Notable improvement in monofilament detection at finger tips. Th is now 4.56, IF is 3.61, MF is 3.61, RF is 2.83, and SF is 2.83. Also assessed warm/cold which was inconsistent but approximately 50% accurate in all digits. 10/23/22 No significant changes in monofilament testing, however, pt is no longer complaining of numbness and tingling along the back of the arm, thumb is still quite hypersensitive, especially with deep pressure and stretching of MP and IP joints . 07/24/22 Monofilament testing = 6.51 throughout tips of index , long, and ring fingers, no detection at the thumb or pinky. Pt describes tingling and numbness at the back of the arm all the way down the arm into the hand. Pt demonstrates weakness throughout the brachioradialis and into the extrinsic wrist/ finger extensors. OT Problems Problems Problems Decreased Strength,Decreased Range of Motion,Decreased Dexterity,Decreased Fine Motor ,Decreased Coordination, Sensory Sensitivity,Lifting, Gripping Other Problems Opening Containers,Dressing, Computer,Fasteners,Sleeping Patient Potential Good Assessment Assessment Assessment Over the past several months, pt has shown nice improvements in strength and ROM at the shoulder, elbow, forearm, and wrist. AROM at the hand / fingers is still quite limited . Sensation has improved. PIP and DIP joints of all fingers are very stiff to spite use of dynamic splinting, HEP stretching, in clinic stretching and joint mobilizations, etc. Pt experiences intolerable pain with stretching of her fingers and thumb as well. Pt has severe pain at the CMC joint of the thumb, question if some of this pain is due to arthritis, demineralization, nerve pain?? It is very difficult to progress ROM due to severe joint stiffness and pain. Pt is participating in desensitization therapies, she is using TENS in clinic and at home, mobilization splinting, strengthening, etc. Pt remains VERY motivated to continue therapy in hopes of furthering her recovery. She works very hard on her home program and incorporates her LUE in all tasks that it is reasonable and safe. Pt will benefit from continued skilled OT intervention to address the remaining limitations in her LUE to promote pain reduction and improved functional use of her LUE. 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 Occupational Therapy Treatment Plan - OP Potential Rehabilitation Potential Good Set Goals Goals Set with Patient Yes Goals Goals Goals remain appropriate 1. Pt will be independent and compliant with HEP in order to resume full, pain-free use of the involved UE. 3 weeks. This goal in ongoing, pt is compliant with HEP and all clinic visits and recommendations. 2. Pt will verbalize a reduction of her average pain from a current 10/10 to no greater than a 2/10 in order to improve ability to sleep and to increase ability to use her LUE during ADLs and IADLs . Pt is progressing towards this goal, pain is reduced to ~ 5/10, she is sleeping better and is attempting to use her LUE with ADLs and IADLs. This goal remains appropriate. 3. Pt will demonstrate full, pain-free AROM of the involved UE in order to improve ability to grasp and hold. 10 weeks Pt showing progress with full AROM of the LUE shoulder and elbow, continues to work on the wrist and hand. This goal remains appropriate . 4. 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 16 weeks. This goal remains appropriate. Target Date 07/08/23 Progress set Treatment Plan Treatment Plan Evaluation,Edema Control,Joint Mobilization,Manual Therapy, Splinting,Ultrasound,Wound Care/Scar Management, Therapeutic Exercise, Therapeutic Activities,Self- Care/Home Management,Caregiver Training,Education Expected Frequency 1-2x Week Expected Duration 12 - 16 wk OT Treatment Minutes Treatment Minutes Timed Treatment Minutes 53 Total Treatment Minutes 53 Occupational Therapy Billing Units Billing Units Manual Therapy 1 Therapeutic Activities 2 Certification Certification I Certify That: Therapy Services Provided, Therapy Plan Established, Therapy Plan Reviewed Recertification Information Recertification Information Initial Certification Date 07/24/22 Recertification Start Date 04/08/23 Recertification Due Date 07/08/23 Reasons to Continue Skilled Therapy Pt has shown significant progress in swelling, pain and AROM in the LUE, especially in the shoulder, elbow, forearm and wrist. Progress is emerging with some active muscle function in hand, however, pt is still quite limited due to severe pain and stiffness in all finger and thumb joints. Pt will benefit from continued skilled OT intervention to address LUE active muscle function in the LUE in order to restore full ROM, strength and ability to functionally use her LUE. Rehabilitation Potential Good Continued Plan of Care and Interventions MT, TE, TA, Self care, Neuromuscular intervention, NMES, Splinting, US Provider Signature Shows Agreement With POC & Medical Necessity Physician Comment/Change Comment or Changes Physician NPI Number #
--- NOTE | 2023-07-20 07:13 | OT.OPODN2 ---
OT Outpatient Ortho Daily Note OT Outpatient Ortho Daily Note Start: 07/23/22 18:48 Freq: Status: Active Protocol: Document 07/15/23 18:34 AMB (Rec: 07/19/23 20:44 AMB [id number]) E-signed By Radha Dickinson, OTR/L, CLT, [employer] TRADER Type of Note Type of Note Type of Note Daily Note,Recert/Progress Note Visit Number [id number] Comments Recert due 10/06/23 Insurance Information Insurance Information Medicare B Outpatient History/Precautions Current Condition/Medical Diagnosis Referring Provider Dr Lee Treatment Diagnosis LUE wrist DR sheeba s/p ORIF, CTR Date of Onset DOI: 06/29/22, DOS: 07/01/22, CTR = 07/22/22 Other Conditions PMH is relatively unremarkable but includes kidney stones. Pt tripped on 06/29/22 while walking her dog sustaining a LUE DR sheeba. Pt underwent ORIF with Dr Lee on 07/01/22. She returned to Ortho on 07/09 with complaints of buring / nerve pain in the shoulder and elbow. It was thought to be related to prolonged sling use and not moving her arm, cast was replaced and pt was encouraged to move shoulder, elbow and fingers. Pt returned on the with more discomfort in shoulder, elbow , hand. Dr Rubio suspected abnormal nerve response from the nerve block, cast was modified, she returned again on the , still no better. It was thought that maybe she had developed median nn compression so Dr Lee performed a CTR on 07/22/22. Medical/Functional History Medical History Reviewed Yes Social History Employment Status Retired Fitness Pt attends senior exercise classes Oriented Mental Status No Concerns Ortho Subjective Subjective Subjective Pt had consult with DO at [facility] on 07/05/23 regarding her LUE thumb pain and right thumb stenosing. Pt had cortisone injections in both areas. She will return to this doctor on July 31. He also prescribed Voltarin to both areas. Pt is not really sure if the injection helped her left thumb, right thumb seems to be better. Left thumb is really sore today, quite bruised from injection. Pt continues to report compliance with her HEP including stretching and strengthening exs, splinting program and pain management. She is using her TENS unit at home. Pt states her TENS unit does not take away her pain but provides some distraction which seems to help. She has discontinued both the Gabapentin and now the Lyrica as she did not like how they made her feel which included fatigue, irritability, and twitching in her eye. However, she is considering going back on Lyrica. [employer] encouraged pt to return to her pain management team at [facility], she is considering this as well. Pain Assessment Pain Present Pain Present Pain Reported Location Left Arm Description Burning,Radiating,Sharp,Dull, Achy Intensity 8 OT OP Daily Ortho Note/Assessment Therapeutic Exercise Therapeutic Exercise Minutes (minutes) 13 Therapeutic Exercise Comments Review and practice of blocked IP flex/ext for RUE thumb, with focus on keeping thumb in radial abduction to avoid stenosing / irritation and increased inflammation at the A1 siva. Encouraged pt to continue with nightly splint ( provided pt with an additional Oval 8 splint as hers went missing), also encouraged warm water soaks BUE to promote blood flow and mm relaxation. Discussed and reviewed current splinting regimen. Recommended pt continue with her finger flexion splint for mobilization / stretch of PIPJs and with her dynamic exercise splint to encourage continued progress in strength of her flexors to improve pt' s ability to grasp while utilizing the elastic bands to aide in release of items as pt does not yet have sufficient activation of her extensors. Manual Therapy Manual Therapy Minutes (minutes) 31 Manual Therapy Comments MT with focus on retrograde massage and gentle AAROM / PROM of the LUE fingers, and thumb. Focus on LLPS to each finger and thumb, all joints, isolated by joint, then by finger, then composite for all digits / joints. Continue to focus on improving PIP and DIP joint mobility of all fingers and MP/IP of thumb in order to be most successful with functional return once nerve regeneration / function occurs . Application of KT to the LUE using CMC support technique to see is this would help with the arthritic pain without adding to her nerve pain. Shoulder Goniometric ROM Shoulder Left Reason Not Measured Within Functional Limits Testing Position Sitting Shoulder Gross Strength Shoulder Left Testing Position Seated Flexion 4 Good Extension 4 Good Abduction 4 Good Adduction 4 Good External Rotation 4 Good Internal Rotation 4 Good Elbow Goniometric Elbow Left Reason Not Measured Within Functional Limits Testing Position Sitting Elbow/Forearm Gross Strength Elbow and Forearm Left Flexion 4 Good Extension 4 Good Pronation 3 Fair Supination 3 Fair Wrist Goniometric Wrist Left Active Flexion (70-90 degrees) 60 L Active Extension (60-70 degrees) 75 H Active Ulnar Deviation (20-30 degrees) 30 Active Radial Deviation (15-20 degrees) 25 H ROM Limitations Muscle Weakness Wrist Gross Strength Wrist Left Flexion 3+ Fair+ Extension 3+ Fair+ Ulnar Deviation 3 Fair Radial Deviation 3 Fair Goniometric Comments Goniometric Comments Goniometric Comments 07/19/23 AROM of the LUE MPs: (measuring active flexion) IF is -50 -70, MF is -50-85, RF is -60-85, SF is -55-75. AROM of the LUE PIPs: IF is 0-30, MF is -20-60, RF is 0-45, SF is 0-30. AROM of the LUE DIPs : IF is 0-10 (very painful), MF is 0 (painful), RF is 0-35, SF is 0-45. Thumb: MP flexion is 30, IP flexion is 10 (very painful) palmar abd is 20 deg , radial abd is 10 deg. All thumb motions are painful, IF painful as well. 04/08/23AROM of the LUE MPs: IF is -50-70, MF is -60-85, RF is -65-85, SF is -60-75. AROM of the LUE PIPs: IF is 0-45, MF is -25-65, RF is 0-45, DIP is 0-45. AROM of the LUE DIPs : IF is 0-10 (very painful), MF is 0 (painful), RF is 0-35, SF is 0-45. Thumb: MP flexion is 30, PIP flexion is 10 ( very painful) palmar abd is 20 deg, radial abd is 10 deg. 03/17/23 AROM of the LUE MPs: IF is -45-70. MF is -60-85, RF is -55-85, SF is -60-85. AROM of the LUE PIPs: IF is 0- 55, MF is 0-70, RF is 0-50, SF is 0-45, thumb palmar abd is 20deg, rdial abd 10 deg. 01/29/23 AROM of the LUE MPs: IF=-45-70, MF= -65- 75, RF= -60-80, SF -60-80. AROM of the LUE PIP: IF=-5-45, MF=-5- 45, RF=0-40, SF=0-40. Thumb: 20 deg of palmar abd and 10 radial abd 12/18/22 IP of the LUE 0~ 5, MP 0-5 10/28/22 PROM of the LUE IF MP flexion is 70, MF is 85, RF is 70, and LF is 80. PROM LUE IF PIP joint is 70, MF is 65, RF is 60, LF is 70. PROM of the LUE DIP flexion is 40, MF is 65, RF is 60, and LF is 40. AROM of th eLUE wrist flexion is from 40 deg of flexion to 25 deg of extension past midline against gravity, AROM o fLUE wrist ext is from 4o deg of flexion to 45 deg of extension against gravity. Pt is now able to demonstrate AROM to be WFL throughout the LUE shoulder, elbow and forearm. Pt demonstrates ~20 deg of active flexion of 2nd - 5th MPs. Pt demonstrates PROM of the tume IP to 30 deg and MP to 25 deg. Minimal active ROM is noted at the thumb. PROM is still quite painful throughout all digits / joints, thumb is the most painful. Pt also experiences significant rebound pain following LLPS of all joints. 09/08/22 Pt is now able to tolerate passive MP flexion at the IF to 65, MF to 70, RF to 75, and SF to 85. Tolerates passive PIP of the IF to 45, MF to 40, RF to 55, and SF to 75. Noting finger abd / add 5 -10 deg. 08/18/22 Follow session, pt is able to actively move shoulder through full flexion, elbow 0 -110, wrist (in gravity eliminated position) flexion to 50 and extension from 50 degrees of flexion to ~ 10 of extension. 07/24/22 Pt has approximately 50deg of MP flex, 40-50 of PIP flex and 0 deg of DIP flexion throughout the LUE 2-5th digits, 0 deg of active motion in the LUE thumb. Trace active extension throughout the MPs and PIPs, 0 in DIPs. 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 Edema Assessment Location Left Hand Degree None Query Text:1+ (Trace) Mild pitting, slight indentation, rapid return to normal 2+ (Mild) Moderate pitting, 4mm indent, rebounds in a few seconds 3+ (Moderate) Deep pitting, 6mm indent, 30 seconds 4+ (Severe) Very deep pitting, 8 mm indent, > 30 seconds to return to normal Edema Appearance Puffy Description Subjective Edema Description Pain,Burning,Tightness Additional Information Comments 07/15/23 Majority of swelling has resolved, occasionally pt will experience swelling, not able to wear wedding ring yet, and does have swelling in the radial wrist / CMC area, 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 Edema is no longer a factor in her limited ROM of her fingers. 12/18/22 Edema has reduced significantly with the steroid infusions, very mild, fingers and thumb, palm. 10/23/22 Circumferential measurements were taken of the LUE: Base of 3rd finger is now 6.8cm, MPs is 18.7cm, Palm is 18.5cm, and wrist is 18. 5cm. Total measurement of the LUE is only 2.2cm larger than the LUE vs 7.7cm larger on IE . 07/24/22 Circumferential measurements were taken of BUE hands: base of 3rd finger on RUE is 6.2cm, LUE is 7.7cm, MPs on the RUE is 18.8cm, LUE is 20.5cm, Palm (through web space) on the RUE is 18.8cm, LUE is 20.8cm, wrist on the RUE is 16.5cm, LUE is 19.0cm. LUE total hand measurements are 7.7cm larger than the RUE. OT Objective Data Hand Hand Dominance Right Observations/Posture Objective Observations 07/15/23 Pt does well with posture and mobility, hand posture is still affected by limited nerve function and resultant weakness / atrophy. 04/08/23 Pt demonstrates improved posture with all tasks, shoulder and elbow move in nicole, in a natural flow with her gait pattern, forearm is supinated, finger and thumb are very stiff. 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 10/23/22 Pt is now able to tolerate PROM of the LUE including pressure and skin manipulation, she has been able to use a static progression flexion glove for LLPS of the 2nd-5th digits, initially pt was not able to tolerate compression glove and very little tissue manipulation. 09/08/22 Pt is much less guarded, improved ability to move arm with natural pattern during gait, less guarded. 07/24/22 Pt demonstrates very guarded posture, forward shoulders, RUE adducted with shoulder IR, elbow flexed, hand and forearm in rigid splint, RUE in sling. Pt experiences pain with most movement out of this position, especially at the shoulder. Skin/Wounds Skin Integrity Comments 07/15/23 No concerns 04/08/23 Skin condition is good , no abrasions or breakdown, color is somewhat flushed when compared to RUE. 09/08/22 CTR and ORIF incisions are well healed. 07/24/22 ORIF incision is healing, still covered with surgical film. CTR incision is still closed with sutures. No draining from either site, no abnormal redness, no s/s of infection. Sensation Sensation Assessment Summary Comments 07/15/23 Monofilament detection at finger tips: Th is 3.61, IF is 3.61, MF is 3.61, RF is 2.83 and SF is 2.83. Upper Extremity Special Tests Degenerative Arthritis Hand Trapeziometacarpal Joint Grind Test Positive Left Upper Extremity Special Tests Comments Comments Pt has significant pain with palpation of the LUE CMC joint . OT Problems Problems Problems Decreased Strength,Decreased Range of Motion,Decreased Dexterity,Decreased Fine Motor ,Decreased Coordination, Sensory Sensitivity,Lifting, Gripping Other Problems Opening Containers,Dressing, Computer,Fasteners,Sleeping Patient Potential Good Assessment Assessment Assessment Pt continues to be a very active and compliant patient in her care. Pt attends all medical visits and follows recommendations. Pt is extremely motivated to recover , she has excellent spousal and family support. Pt's progress has been slow due to the nature of her original injury and has been complicated ever further over the past few months with increasing pain in her left thumb and stenosing of her right thumb. Pt had a consult with in [place] on in which radiographs indicated advanced demineralization, scattered degenerative arthritis, marked at the first CMC, STT joint, and radiocarpal joint where it is advanced, also identified a loose body at the first DIP. Pt received steroid injections in the RUE thumb A1 siva and the LUE CMCJ. Pt has not noticed much relief in either thumb yet, however, this may take some time. Pt also had and EMG at her last neurology appointment in May which indicated no motor unit potential in the extensor indices proprius as of yet but there was improvement in all other muscle groups. Pt's neurologist, Dr Schumacher noted in his documentation dated that he expected pt to continue to improve. He recommended continue with stretching exercises and to continue with the recommendations of OT and pain medicine. He will see her back in 1 year for re- assessment. With pt's motivation and continued improvement, as well as her neurologist's recommendations, it is imperative that pt continue with skilled OP OT services in order to maximize positive outcomes. Moving forward, we will continue to address LUE weakness, stiffness, and now arthritic pain as well as her RUE first digit stenosing as needed with ultimate focus on yazidi of functional use of her LUE. OT Outpatient Treatment Plan Ortho Barriers Barriers to Goal Attainment Severe nerve damage following ORIF of [facility] in June of 2022. Occupational Therapy Treatment Plan - OP Potential Rehabilitation Potential Good Set Goals Goals Set with Patient Yes Goals Goals Goals remain appropriate ( reviewed 07/15/23) 1. Pt will be independent and compliant with HEP in order to resume full, pain-free use of the involved UE. 3 weeks. This goal in ongoing, pt is compliant with HEP and all clinic visits and recommendations. 2. Pt will verbalize a reduction of her average pain from a current 10/10 to no greater than a 2/10 in order to improve ability to sleep and to increase ability to use her LUE during ADLs and IADLs . Pt is progressing towards this goal, pain is reduced to ~ 5/10, she is sleeping better and is attempting to use her LUE with ADLs and IADLs. This goal remains appropriate. 3. Pt will demonstrate full, pain-free AROM of the involved UE in order to improve ability to grasp and hold. 10 weeks Pt showing progress with full AROM of the LUE shoulder and elbow, she is showing some emergence of active PIP ext and very slight , inconsistent active MP extension at this point. This goal remains appropriate. 4. Pt will demonstrate pain- free documentation designer and pinch strength comparable to the uninvolved side in order to improve functional grasp, hold, reach, and lifting ability needed to complete self-care, leisure tasks, and work activities. 16 weeks. This goal remains appropriate. Improvement Rn strength is now approximately 45-50% of estimated baseline, however, this has now become quite painful due her added arthritic pain. Target Date 07/08/23 Progress set Treatment Plan Treatment Plan Evaluation,Edema Control,Joint Mobilization,Manual Therapy, Splinting,Ultrasound,Wound Care/Scar Management, Therapeutic Exercise, Therapeutic Activities,Self- Care/Home Management,Caregiver Training,Education Expected Frequency 1-2x Week Expected Duration 12 - 16 wk OT Treatment Minutes Treatment Minutes Timed Treatment Minutes 44 Total Treatment Minutes 44 Occupational Therapy Billing Units Billing Units Manual Therapy 2 Therapeutic Exercise 1 Recertification Information Recertification Information Initial Certification Date 07/24/22 Recertification Start Date 07/08/23 Recertification Due Date 10/06/23 Reasons to Continue Skilled Therapy Pt continues to be a very active and compliant patient in her care. Pt attends all medical visits and follows recommendations. Pt is extremely motivated to recover , she has excellent spousal and family support. Pt's progress has been slow due to the nature of her original injury and has been complicated ever further over the past few months with increasing pain in her left thumb and stenosing of her right thumb. Pt had a consult with DO in [place] on in which radiographs indicated advanced demineralization, scattered degenerative arthritis, marked at the first CMC, STT joint, and radiocarpal joint where it is advanced, also identified a loose body at the first DIP. Pt received steroid injections in the RUE thumb A1 siva and the LUE CMCJ. Pt has not noticed much relief in either thumb yet, however, this may take some time. Pt also had and EMG at her last neurology appointment in May which indicated no motor unit potential in the extensor indices proprius as of yet but there was improvement in all other muscle groups. Pt's neurologist, Dr Schumacher noted in his documentation dated that he expected pt to continue to improve. He recommended continue with stretching exercises and to continue with the recommendations of OT and pain medicine. He will see her back in 1 year for re- assessment. With pt's motivation and continued improvement, as well as her neurologist's recommendations, it is imperative that pt continue with skilled OP OT services in order to maximize positive outcomes. Moving forward, we will continue to address LUE weakness, stiffness, and now arthritic pain as well as her RUE first digit stenosing as needed with ultimate focus on yazidi of functional use of her LUE. Rehabilitation Potential Good Continued Plan of Care and Interventions MT, TE, TA, Self care, Neuromuscular intervention, NMES, Splinting, US Provider Signature Shows Agreement With POC & Medical Necessity Physician Comment/Change Comment or Changes Physician NPI Number #
--- NOTE | 2023-10-07 07:59 | OT.OPODN ---
OT Outpatient Ortho Daily Note OT Outpatient Ortho Daily Note* Start: 08/18/23 12:09 Freq: Status: Active Protocol: Document 10/06/23 07:50 AMB (Rec: 10/07/23 07:59 AMB [id number]) E-signed By Radha Dickinson, OTR/L, CLT, INSPECTOR PLATING Type of Note Type of Note Type of Note Daily Note,Recert/Progress Note Visit Number [id number] Comments Recert due 01/04/24 Sees pain clinic on October 20 Insurance Information Insurance Information Medicare B Insurance Information Comments . Outpatient History/Precautions Current Condition/Medical Diagnosis Referring Provider Dr Lee Medical Diagnoses LUE wrist DR aly s/p ORIF, CTR, nerve injury Treatment Diagnosis Pain, weakness, limited AROM of the LUE Date of Onset DOI: 06/29/22, DOS: 07/01/22, CTR = 07/22/22 Other Precautions . Other Conditions PMH is relatively unremarkable but includes kidney stones. Pt tripped on 06/29/22 while walking her dog sustaining a LUE DR aly. Pt underwent ORIF with Dr Lee on 07/01/22. She returned to Ortho on 07/09 with complaints of buring / nerve pain in the shoulder and elbow. It was thought to be related to prolonged sling use and not moving her arm, cast was replaced and pt was encouraged to move shoulder, elbow and fingers. Pt returned on the with more discomfort in shoulder, elbow , hand. Dr Rubio suspected abnormal nerve response from the nerve block, cast was modified, she returned again on the , still no better. It was thought that maybe she had developed median nn compression so Dr Lee performed a CTR on 07/22/22. Medical/Functional History Medical History Reviewed Yes Prior Level of Function/Mobility Full, pain-free use of her LUE Social History Employment Status Retired Hobbies Grandchildren's activities, cooking, [employer] Pt attends senior exercise classes Oriented Mental Status No Concerns Ortho Subjective Subjective Subjective Pt continues to really struggle with pain, thumb and IF are the worst. Continues to take Cymbalta, using her TENS but neither really seem to be effective. Pt will see the pain clinic at [place] on Pain Assessment Pain Pain Yes Pain Comments LUE hand, thumb and IF mostly, numb, sharp, burning, 8/10. OT OP Daily Ortho Note/Assessment Manual Therapy Manual Therapy Minutes (minutes) 15 Manual Therapy Comments MT with focus on retrograde massage and gentle AAROM / PROM of the LUE fingers, and thumb. Also provided MT with light MFR to the medial, anterior forearm with focus on light MFR and TPR, utilized Graston tool for VERY LIGHT IASTM in anterior forearm as well. Ultrasound Ultrasound Minutes (minutes) 10 Ultrasound Location & Joint Position To LUE anterior forearm / hand , and CMCJ for tissue heating / relaxation, as well as circulatory and anti- inflammatory benefit. Ultrasound Frequency & Mode 1 MHz Pulsed Intensity (w/cm2) 1.5 Total Occupational Therapy Time Occupational Therapy Minutes 25 Home Program Home Program Home Program Compliant Home Program Specifics 08/25/23 Pt has extensive HEP for AROM, AAROM of LUE fingers , thumb, and wrist. Pt also has dynamic splints with focus on provided LLPS for finger flexion with blocking at PIPJ, she also has a Bennik splint for support at the MPJs to allow for active grasp pattern with assisted release. Goniometric Comments Goniometric Comments Goniometric Comments 10/06/23 AROM of the LUE hand is as follows: IF: MP=65, PIP=50, DIP=15 MF: MP=90, PIP=70, DIP=24 RF: MP=85, PIP=55, DIP=30 SF: MP=90, PIP=55, DIP=35 Thumb: MP=30, IP=15, radial abd is 0, palmar abd is 45. 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 07/15/23 Pt has significant increased pain with soybean grower and pinch strength testing, appears to be related to the CMC OA, not as much nerve pain , although, it is difficult to decipher. OT Problems Problems Problems Decreased Strength,Decreased Range of Motion,Decreased Dexterity,Pain,Decreased Coordination,Sensory Sensitivity,Lifting,Gripping, Pinching Other Problems Opening Containers,Dressing, Computer,Fasteners,Sleeping Patient Potential Good Assessment Assessment Assessment LUE hand function/motion is still grossly limited, very difficult to stretch and mobilize due to pain. Pt has adapted well and is really trying to use her left hand as much as possible, however, the pain really limits her ability to do so. Pt is hopeful that she will get some relief or answers in a couple weeks when she goes to the pain clinic. Pt remains at high risk for the development of contractures in her left hand due to her inability to mobilize her fingers due to significant pain and weakness / impaired nerve function. Pt will continue to benefit from skilled OT intervention to address LUE pain, ROM, strength and function. Pt remains motivated to progress and continues to be compliant with her home program as much as she is able. Occupational Therapy Treatment Plan - OP Potential Rehabilitation Potential Good Barriers Barriers to goal attainment Severe nerve damage following ORIF of VERNON DR in June of 2022. Set Goals Goals Set with Patient Yes Goals Goals Goals remain appropriate ( reviewed 10/06/23) 1. Pt will be independent and compliant with HEP in order to resume full, pain-free use of the involved UE. 3 weeks. This goal in ongoing, pt is compliant with HEP and all clinic visits and recommendations. 2. Pt will verbalize a reduction of her average pain from a current 10/10 to no greater than a 2/10 in order to improve ability to sleep and to increase ability to use her LUE during ADLs and IADLs . This goal is ongoing, pt has really been struggling with pain in her IF and thumb, she has underlying issue of advanced CMC OA on top of the nerve pain, she has received cortisone injections x 2 in the CMC joint and has had multiple medication changes with little to no improvement, she will be seen in the pain clinic in a couple of weeks. This goal remains appropriate. 3. Pt will demonstrate full, pain-free AROM of the involved UE in order to improve ability to grasp and hold. 10 weeks. Pt continues to show slow but steady progress with full AROM of the LUE shoulder and elbow, she is showing some active PIP ext and more active MP extension at this point. She is using her Benik splint when pain allows to assist with functional extension during ADLs and IADLs. This goal remains appropriate. 4. 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 16 weeks. This goal remains appropriate. Radiology Teacher strength is now approximately 45-50% of estimated baseline, however, this has now become quite painful due her added arthritic pain. We were unable to test soybean grower and pinch strength today due to her pain level in thumb and IF. Target Date 07/08/23 Treatment Plan Treatment Plan Evaluation,Edema Control,Joint Mobilization,Manual Therapy, Splinting,Ultrasound, Therapeutic Exercise, Therapeutic Activities,Self Care/Home Management,Manager Dish Training,Education,NMES, Neuromuscular Reeducation Expected Frequency 1-2x Week Expected Duration 12 - 16 wk Occupational Therapy Billing Units Treatment Minutes Timed Treatment Minutes 25 Total Treatment Minutes 25 Billing Units Manual Therapy 1 Ultrasound 1 Certification Statement Certification Statement I Certify That: Therapy Services Provided, Therapy Plan Established, Therapy Plan Reviewed Recertification Information Recertification Information Initial Certification Date 08/17/22 Recertification Start Date 10/06/23 Recertification Due Date 01/04/24 Reasons to Continue Skilled Therapy LUE hand function/motion is still grossly limited, very difficult to stretch and mobilize due to pain. Pt has adapted well and is really trying to use her left hand as much as possible, however, the pain really limits her ability to do so. Pt is hopeful that she will get some relief or answers in a couple weeks when she goes to the pain clinic. Pt remains at high risk for the development of contractures in her left hand due to her inability to mobilize her fingers due to significant pain and weakness / impaired nerve function. Pt will continue to benefit from skilled OT intervention to address LUE pain, ROM, strength and function. Pt remains motivated to progress and continues to be compliant with her home program as much as she is able. Rehabilitation Potential Good Click To Default 'Per treatment plan' Per treatment plan Continued Plan of Care and Interventions Per treatment plan Provider Signature Required Yes Provider Signature Shows Agreement With POC & Medical Necessity Physician NPI Number Write NPI# Here Physician Comment/Change Comment or Changes Physician Signature & Date Requested Please Sign/Date Here
--- NOTE | 2023-12-29 17:54 | OT.OPODN ---
OT Outpatient Ortho Daily Note OT Outpatient Ortho Daily Note* Start: 08/18/23 12:09 Freq: Status: Active Protocol: Document 02/03/24 12:27 AMB (Rec: 02/03/24 15:05 AMB [id number]) E-signed By Radha Dickinson, OTR/L, CLT, WELDING PANTOGRAPH MACHINE OPERATOR Type of Note Type of Note Type of Note Daily Note Visit Number [id number] Comments Recert due 03/30/24 02/03/24 Spoke with Orlin at the pain clinic regarding minimal change with nerve block. She will leave a message with EARLINE Alexis (ordering provider for the nerve block). Someone with call patient back in 2-4 business days. If you haven?t heard from anyone, you can call this number: [phone] . The pain clinic number is [phone]. Per last MD visit: 1. Pt will have a nerve block (radial and median) with steroid with the hopes of 3-4 months of pain relief / benefit. This is scheduled for 12/30/23 2. If this is helpful for 3-4 months then they will repeat the injection. If she gets temporary relief, then they will proceed to #3, if no benefit then they will proceed to #4. 3. Peripheral Nerve Stimulation (Temporary) with Dr Braun. 4. Stellate Ganglion Block 5. Possible Spinal Cord Stimulation (permanent). [ End ] Insurance Information Insurance Information Medicare B Insurance Information Comments [facility] #[id number] Dr [facility] Dr Niya Mathias Her Outpatient History/Precautions Current Condition/Medical Diagnosis Referring Provider Dr Lee Medical Diagnoses LUE wrist DR aly s/p ORIF, CTR, nerve injury Treatment Diagnosis Pain, weakness, limited AROM of the LUE Date of Onset DOI: 06/29/22, DOS: 07/01/22, CTR = 07/22/22 Other Precautions . Other Conditions PMH is relatively unremarkable but includes kidney stones. Pt tripped on 06/29/22 while walking her dog sustaining a LUE DR aly. Pt underwent ORIF with Dr Lee on 07/01/22. She returned to Ortho on 07/09 with complaints of buring / nerve pain in the shoulder and elbow. It was thought to be related to prolonged sling use and not moving her arm, cast was replaced and pt was encouraged to move shoulder, elbow and fingers. Pt returned on the with more discomfort in shoulder, elbow , hand. Dr Rubio suspected abnormal nerve response from the nerve block, cast was modified, she returned again on the , still no better. It was thought that maybe she had developed median nn compression so Dr Lee performed a CTR on 07/22/22. Medical/Functional History Medical History Reviewed Yes Prior Level of Function/Mobility Full, pain-free use of her LUE Social History Employment Status Retired [employer] Grandchildren's activities, cooking, [employer] Pt attends senior exercise classes Oriented Mental Status No Concerns Ortho Subjective Subjective Subjective Pt continues to utilize her static progressive finger flexion splint at home, tolerates it ok but still having a lot of pain in her thumb and IF. Pt continues with compliance with her HEP as well. OT OP Daily Ortho Note/Assessment Therapeutic Exercise Therapeutic Exercise Minutes (minutes) 15 Therapeutic Exercise Comments Review of HEP. Pt completed isolated joint flexion stretch for PIPJ of each finger and then the DIPJ of each finger and then composite finger flexion stretch of each individual finger. Practiced picking up various sized objects with focus on normalized grasp and pinch patterns, resisted gripping with tennis ball 15 reps and with red foam tubing 10 reps x 2. Manual Therapy Manual Therapy Minutes (minutes) 32 Manual Therapy Comments Provided manual therapy with focus on gentle joint mobilizations with light joint distraction and compression, gentle AAROM / stretch to promote flexion of each joint of all digits of the hand first isolated at each joint then composite, using LLPS, also provided STM into the palm and digits for interossei mobilization / relaxation. Completed focus on thumb AAROM of palmar and radial abduction with manual adductor release, which can be quite painful for pt. Total Occupational Therapy Time Occupational Therapy Minutes 47 Home Program Home Program Home Program Compliant Home Program Specifics 08/25/23 Pt has extensive HEP for AROM, AAROM of LUE fingers , thumb, and wrist. Pt also has dynamic splints with focus on provided LLPS for finger flexion with blocking at PIPJ, she also has a Bennik splint for support at the MPJs to allow for active grasp pattern with assisted release. Goniometric Comments Goniometric Comments Goniometric Comments AROM of the LUE hand is as follows: IF: MP=80, PIP=50, DIP=15 MF: MP=80, PIP=90, DIP=10 RF: MP=90, PIP=60, DIP=25 SF: MP=85, PIP=55, DIP=40 Thumb: MP=30, IP=15, radial abd is 0, palmar abd is 45. PROM of the LUE is as follows: IF: MP=85, PIP=70, DIP=30 MF: MP=90, PIP=95, DIP=30 RF: MP=95, PIP=85, DIP=40 SF: MP=95, PIP=80, DIP=55 Thumb: MP=35, IP=20, radial abd is 10 , palmar abd is 55. 10/06/23 AROM of the LUE hand is as follows: IF: MP=65, PIP=50, DIP=15 MF: MP=90, PIP=70, DIP=24 RF: MP=85, PIP=55, DIP=30 SF: MP=90, PIP=55, DIP=35 Thumb: MP=30, IP=15, radial abd is 0, palmar abd is 45. Hand Pinch/Inspector Precision Strength Hand Pinch/Inspector Precision Strength Hand Pinch/Inspector Precision Strength Left Hand,Right Hand Left Hand Inspector Precision Strength Position 1 in Elbow 20 Flexion (lbs) Right Hand Inspector Precision Strength Position 1 in Elbow 52 Flexion (lbs) Lateral Pinch Strength (lbs) 17 Comments Comments Pt has significant increased pain in her left thumb with chamber walker strength testing, applied silicone gel sleeve to pad MP and PIP joints, this was helpful. OT Objective Data Hand Hand Dominance Right Observations/Posture/Limb Appearance Objective Observations 07/15/23 Pt does well with posture and mobility, hand posture is still affected by limited nerve function and resultant weakness / atrophy. 04/08/23 Pt demonstrates improved posture with all tasks, shoulder and elbow move in nicole, in a natural flow with her gait pattern, forearm is supinated, finger and thumb are very stiff. 12/11/22 Pt is now able to use a modified but functional pincher grasp to hot die picker and stack 3 dice, also able to perform resisted pinch strength with a yellow clothes pin. 10/23/22 Pt is now able to tolerate PROM of the LUE including pressure and skin manipulation, she has been able to use a static progression flexion glove for LLPS of the 2nd-5th digits, initially pt was not able to tolerate compression glove and very little tissue manipulation. 09/08/22 Pt is much less guarded, improved ability to move arm with natural pattern during gait, less guarded. 07/24/22 Pt demonstrates very guarded posture, forward shoulders, RUE adducted with shoulder IR, elbow flexed, hand and forearm in rigid splint, RUE in sling. Pt experiences pain with most movement out of this position, especially at the shoulder. Skin/Wounds/Edema Comments 07/15/23 No concerns 04/08/23 Skin condition is good , no abrasions or breakdown, color is somewhat flushed when compared to RUE. 09/08/22 CTR and ORIF incisions are well healed. 07/24/22 ORIF incision is healing, still covered with surgical film. CTR incision is still closed with sutures. No draining from either site, no abnormal redness, no s/s of infection. Sensation Sensation Assessment Summary Comments 07/15/23 Monofilament detection at finger tips: Th is 3.61, IF is 3.61, MF is 3.61, RF is 2.83 and SF is 2.83. OT Problems Problems Problems Decreased Strength,Decreased Range of Motion,Decreased Dexterity,Pain,Decreased Coordination,Sensory Sensitivity,Lifting,Gripping, Pinching Other Problems Opening Containers,Dressing, Computer,Fasteners,Sleeping Patient Potential Good Assessment Assessment Assessment Pt having pain in IF and thumb , required several rest breaks during stretch, also needs softer touch today as she does not tolerate aggressive stretch due to pain. Occupational Therapy Treatment Plan - OP Potential Rehabilitation Potential Good Barriers Barriers to goal attainment Severe nerve damage following ORIF of VERNON JOHNSON in June of 2022. Set Goals Goals Set with Patient Yes Goals Goals Goals remain appropriate ( reviewed 10/06/23) 1. Pt will be independent and compliant with HEP in order to resume full, pain-free use of the involved UE. 3 weeks. This goal in ongoing, pt is compliant with HEP and all clinic visits and recommendations. 2. Pt will verbalize a reduction of her average pain from a current 10/10 to no greater than a 2/10 in order to improve ability to sleep and to increase ability to use her LUE during ADLs and IADLs . This goal is ongoing, pt has really been struggling with pain in her IF and thumb, she has underlying issue of advanced CMC OA on top of the nerve pain, she has received cortisone injections x 2 in the CMC joint and has had multiple medication changes with little to no improvement, she will be seen in the pain clinic in a couple of weeks. This goal remains appropriate. 3. Pt will demonstrate full, pain-free AROM of the involved UE in order to improve ability to grasp and hold. 10 weeks. Pt continues to show slow but steady progress with full AROM of the LUE shoulder and elbow, she is showing some active PIP ext and more active MP extension at this point. She is using her Benik splint when pain allows to assist with functional extension during ADLs and IADLs. This goal remains appropriate. 4. Pt will demonstrate pain- free chamber walker and pinch strength comparable to the uninvolved side in order to improve functional grasp, hold, reach, and lifting ability needed to complete self-care, leisure tasks, and work activities. 16 weeks. This goal remains appropriate. Inspector Precision strength is now approximately 45-50% of estimated baseline, however, this has now become quite painful due her added arthritic pain. We were unable to test chamber walker and pinch strength today due to her pain level in thumb and IF. Target Date 07/08/23 Treatment Plan Treatment Plan Evaluation,Edema Control,Joint Mobilization,Manual Therapy, Splinting,Ultrasound, Therapeutic Exercise, Therapeutic Activities,Self Care/Home Management,Assembly Technician Training,Education,NMES, Neuromuscular Reeducation Expected Frequency 1-2x Week Expected Duration 12 - 16 wk Occupational Therapy Billing Units Treatment Minutes Timed Treatment Minutes 47 Total Treatment Minutes 47 Billing Units Manual Therapy 2 Therapeutic Exercise 1 Certification Statement Certification Statement I Certify That: Therapy Services Provided, Therapy Plan Established, Therapy Plan Reviewed
--- OUTSIDE RECORDS SUMMARY | 2024-03-30 12:21 | XMS_ITS | Referral Summary ---
Author Organization [facility] Address [address] [place] [id number] Care Team Providers Care Family Practice Medical Doctor Name Role Phone Elsewhere, Pcp Primary Care Provider Unavailabl e Source Comments Patient records contain information from all sites at [facility]. For routine questions regarding patient records, call [phone] during business hours, M-F 8:00 AM - 5:00 PM Central Time. Record requests for emergency care only can be directed to [phone] at any time.[facility] Encounters Date Type Department Care Team Description 03/01/2024 Clinical Communication Department of Physical Medicine and Rehabilitation in [place], [place] [address] [place] [phone] Jonah Núñez D.O. 02/03/2024 Clinical Communication Division of Pain Medicine in [place], [place] [address] [place] [phone] Lidia Morales P.A.-C., M.S. Follow-up (PM Nerve Block injection) 01/28/2024 Refill Department of Physical Medicine and Rehabilitation in [place], [place] [address] [place] [phone] Jonah Núñez D.O. Med Refill 01/03/2024 Clinical Communication Division of Pain Medicine in [place], [place] [address] [place] [phone] Maegan Asencio R.N. 12/30/2023 9:30 AM CDT Procedure visit Division of Pain Medicine in [place], [place] [address] [place] [address] Setw Braun M.D., Ph.D. Pain Arm Left; Pain Neuropathic from Last 3 Months Allergies No known active allergies Medications acetaminophen (TYLENOL) 125 mg tablet Take 1,000 mg by mouth as needed. 2 Tabs 500 MG 2 to 3 times per day 3 Active rosuvastatin (CRESTOR) 5 mg tablet Take 5 mg by mouth at bedtime. 3 Active calcium carbonate-tim min D3 1,500 mg (600 mg calcium)-5 mcg (200 Unit) per tablet Take 1 tablet by mouth daily. 6 Active latanoprostene bunod (Vyzulta) 0.024 % drops ophthalmic solution Administer 1 drop into affected eye(s) at bedtime. 1 Active brimonidine-ti moloL (COMBIGAN) 0.2-0.5 % ophthalmic solution Administer into affected eye(s) 2 (two) times a day. 0 Active cholecalcifero l (VITAMIN D3) 125 mcg (5,000 Unit) tablet Take 5,000 Units by mouth daily. 5 Active ibuprofen (ADVIL,MOTRIN) 200 mg capsule Take 400-600 mg by mouth as needed. 3 Active multivitamin tablet Take by mouth daily. 6 Active ubidecarenone (H2Q COQ10 ORAL) Take 1 capsule by mouth daily. Active ascorbic acid (VITAMIN C ORAL) Take 1 capsule by mouth daily. Active esomeprazole (NexIUM) [address] capsule Take 20 mg by mouth every morning before breakfast. 3 Active oxyCODONE (ROXICODONE) 5 mg immediate release tablet as needed for pain. 3 Active dorzolamide (TRUSOPT) 2 % ophthalmic solution INSTILL INTO BOTH EYES TWICE DAILY 3 Active LORazepam (ATIVAN) 0.5 mg tablet Take 0.25-0.5 mg by mouth at bedtime as needed. 4 Active lidocaine (LIDODERM) 5 % adhesive patch,medicate d Place 1 patch on the skin daily. Remove & discard patch within 12 hours or as directed by MD. 5 patch 1 4 Active acetaminophen (TylenoL) 500 mg tablet Take 500 mg by mouth every 6 (six) hours as needed for pain. Active mirtazapine (Remeron) 15 mg tablet Take 1 tablet by mouth as needed. Pt takes 1/2 tab PRN 4 Active TURMERIC ORAL Take by mouth. A ctive DULoxetine (Cymbalta) [address] capsule Take 1 capsule (30 mg total) by mouth 2 (two) times a day. 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 No 09/05/2023 Humiliation, Afraid, Rape, and Kick questionnair e Answer Date Recorded Within the last year, have y ou been afraid of your partner or ex-partner? No 08/20/2022 Within the last year, have y ou been humiliated or emotionally abused in other ways by your partner or ex-partner? No Within the last year, have y ou been kicked, hit, slapped, or otherwise physically hurt by your partner or ex-partner? No 08/20/2022 Within the last year, have y ou been raped or forced to have any kind of sexual activity by your partner or ex-partner? No 08/20/2022 Overall Financial Resource Strain (CARDIA) Answe r Date Recorded How hard is it for you to pa y for the very basics like food, housing, medical care, and heating? Not hard at all 08/20/2022 Exercise Vital Sign Answer Date Recorde d On average, how many days pe r week do you engage in moderate to strenuous exercise (like a brisk walk)? 5 days 09/05/2023 On average, how many minutes do you engage in exercise at this level? 50 min 09/05/2023 Hunger Vital Sign Answer Date Recorded Within the past 12 months, y ou worried that your food would run out before you got the money to buy more. Never true 09/05/19 24 Within the past 12 months, t he food you bought just didn't last and you didn't have money to get more. Never true 09/05/2023 PRAPARE - Transportation Answer Date Re corded In the past 12 months, has l ack of transportation kept you from medical appointments or from getting medications? No 11/2023 In the past 12 months, has l ack of transportation kept you from meetings, work, or from getting things needed for daily living? No 09/05/2023 Nutrition Answer Date Recorded On average, how many serving s of fruits and vegetables do you eat per day (serving size is equal to 1 cup or approximately the size of a tennis ball)? 0-2 09/05/2023 Dental Answer Date Recorded Dental: Regular Dentist Yes 08/21/19 Employment Answer Date Recorded Employment status Retired 09/05/2023 Housing Stability Answer Date Recorded What is your living situation today? I have a [facility] place to live 09/05/2023 Comments Unknown Sex and Gender Information Value Date Recorded Sex Assigned at Female 08/20/2022 9:31 PM CDT Legal Sex Female 9:27 PM MITIGATION SUPERVISOR Gender Identity Female 08/20/2022 9:31 PM CDT Sexual Orientation Straight 08/20/2022 9: 31 PM CDT Last Filed Vital Signs Vital Sign Reading Time Taken Comments Blood Pressure 129/83 11/30/2023 9:56 AM CDT Pulse 60 11/30/2023 9:56 AM CDT Temperature 36.8 C (98.2 F) 08/25/2022 7:53 AM CDT Respiratory Rate - - Oxygen Saturation - - Inhaled Oxygen Concentration - - Weight 81 kg (178 lb 9.2 oz) 06/24/2023 12:45 PM CDT Height 165 cm (5' 4.96) 06/24/2023 12:45 PM CDT Body Mass Index 29.75 06/24/2023 12:45 PM CDT Plan of Treatment Upcoming Encounters Date Type Department Care Team (Latest Contact Info) Description 03/30/2024 1:15 PM MITIGATION SUPERVISOR Clinical Communication Virtual Review in [place], [place] 200 [place] [address] 04/03/2024 11:30 AM MITIGATION SUPERVISOR Office Visit Division of Pain Medicine in [address] [phone] Clara Martell APRN, CONTACT LENS LATHE OPERATOR, D.N.P. [address] [place] [phone] 04/03/2024 1:30 PM MITIGATION SUPERVISOR Appointment Division of Pain Medicine in [address] [phone] Lidia Morales P.A.-Shruthi., M.S. [address] [place] [phone] Medical Devices Implanted Type Area Public Works Director Device Identifier Shelf Expiration Date Model / Serial / Lot Hardware E.G. Pins/Screws/R ods Hardware e.g. pins/screws/ rods Left: Wrist Procedures Procedure Name Priority Date/Time Associated Diagnosis Comments PM NERVE BLOCK INJECTION Routine 12/30/2023 9:30 AM CDT Pain Arm Left Pain Neuropathic from Last 3 Months Results * PM Nerve Block injection Other; Radial and Median nerve; US-Guided; Left (12/30/2023 9:30 AM CDT) Narrative Stew Braun M.D., Ph.D. - 12/30/2023 9:30 AM CDT Stew Braun M.D., Ph.D. 12/30/2023 9:43 AM PM Nerve Block injection Other; Radial and Median nerve; US-Guided; Left Performed by: Stew Braun M.D., Ph.D. Authorized by: Lidia Morales P.A.-C., M.S. Care team members present 1. Sunday Russo M.D. 2. Maura Cross L.P.N. PROCEDURE SUMMARY Indications: peripheral neuropathy Body area: upper extremity Procedure location (upper extremity nerve): Left radial and other Other upper extremity nerve: Left median at the cubital fossa Radial position: supine Other upper extremity nerve position: supine Needle size: 25 G Needle length: 1.25 in Nerve block type: single injection IMAGING Ultrasound image guidance used to localize target, identify at risk structures, and dynamically used to direct therapy to the target. Image(s) acquired and saved. Ultrasound probe (MHz): linear mid-frequency Needle visualization: in-plane Needle approach: lateral to medial INJECTED MEDICATIONS: Injection(s), anesthetic agent(s) and/or steroid(s): The injected medication(s) listed was divided equally between the identified injection location(s) Total volume of injectate (mL): 4 Total steroid in injectate (mg): 10 3 mL lidocaine 20 mg/mL 10 mg dexAMETHasone 10 mg/mL PROCEDURE DETAILS Radial description: The patient was placed in the appropriate position. Prior to the procedure, the location of the radial nerve was identified in the affected region and the optimal needle path determined. Thereafter, a needle was advanced near the nerve and after negative aspiration, the medication was injected. Following the injection, the needle was withdrawn. The patient tolerated the procedure well and there were no apparent complications. After an appropriate amount of observation, the patient was dismissed from the clinic in good condition under their own power. Other upper extremity nerve description: The patient was brought to the procedure suite and placed in the appropriate position. Prior to the procedure, the location of the nerve was identified in the affected region and the optimal needle path determined. Thereafter, a needle was advanced near the nerve and after negative aspiration, the medication was injected. Following the injection, the needle was withdrawn. The patient tolerated the procedure well and there were no apparent complications. After an appropriate amount of observation, the patient was dismissed from the clinic in good condition under their own power. Additional Procedure Comments Tolerated well. We blocked the median nerve at two finger breaths distal of the cubital fossa. For the PNS, we may consider more proximal location due to the proximity of the radial artery and vein to the median nerve that the blocked location. For the radial nerve, we blocked proximal to the bifurcation of the nerve very close to the radial groove along the mid shaft of the humerus bone. CONSENT Consent obtained: written (Risks, benefits and alternatives were discussed and a written Informed Consent was obtained. Please see Informed Consent form for further details.) UNIVERSAL PROTOCOL All relevant documentation and testing were reviewed and available. All required blood products, implants, devices and or special equipment were made available as applicable. Pre-procedure verification was conducted and the correct site was marked if required. A fire risk and smoke assessment were done as applicable. The procedural time-out to verify correct patient, correct side/site, and procedure was conducted prior to performing the procedure and confirmed in a procedural pause. PRE-PROCEDURE DETAILS Appropriate hand hygiene, gown, cap, mask, protective eyewear, sterile gloves, skin preparation, sterile drape, and strict aseptic technique were utilized as applicable for the procedure.: yes Skin preparation: chlorhexidine SEDATION / ANESTHESIA Anesthesia method: local infiltration Local infiltrate type: lidocaine ATTESTATION STATEMENT A resident or fellow participated in the procedure, and the document management consultant was present for the entire procedure. OPERATIVE NOTE INFORMATION Specimens: 0 Drains: 0 Estimated blood loss: 0 Implants: 0 Lidia Morales P.A.-C., M.S. PROCEDURE/MINOR WOODWARD RGICAL ORDERABLES Final Result from Last 3 Months Insurance MEDICARE [facility] Care Teams Family Practice Medical Doctor Relationship Specialty Start Date End Date Elsewhere, Pcp PCP - General Internal Medicine 06/18/23
--- OUTSIDE RECORDS SUMMARY | 2024-03-30 12:21 | XMS_ITS | Clinical Summary ---
Author Organization [facility] Address [address] [place] [id number] Care Team Providers Care Displayer Merchandise Name Role Phone Elsewhere, Pcp Primary Care Provider Unavailabl e Source Comments Patient records contain information from all sites at [facility]. For routine questions regarding patient records, call [phone] during business hours, M-F 8:00 AM - 5:00 PM Central Time. 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 02/03/2024 Clinical Communication Division of Pain Medicine in [place], [place] [address] [place] [address] Lidia Morales P.A.-C., M.S. Follow-up (PM Nerve Block injection) 01/28/2024 Refill Department of Physical Medicine and Rehabilitation in [place], [place] [address] [place] [address] Jonah Núñez D.O. Med Refill 01/03/2024 Clinical Communication Division of Pain Medicine in [place], [place] [address] [place] [address] Maegan Asencio R.N. 12/30/2023 9:30 AM CDT Procedure visit Division of Pain Medicine in [place], [place] [address] [place] [address] Stew Braun M.D., Ph.D. Pain Arm Left; Pain Neuropathic from Last 3 Months Family History Medical History Relation Name Comments Coronary artery disease Father Josh Gamez Other cancer Father Josh Gamez Alcohol abuse Mother Nelia Gamez Stroke Mother Nelia Gamez Relation Name Status Comments Father Josh Gamez Mother Nelia Gmaez Social History Tobacco Use Types Packs/Day Years Used Date Smoking Tobacco: Never Smokeless Tobacco: Never Tobacco Cessation:Counseling Given: Not Answered Alcohol Use Standard Drinks/Week Comments Yes 2 (1 standard drink = 0.6 oz pur e alcohol) Occassionally [facility] Utilities Answer Date Recorded In the past 12 months has [facility] [employer], gas, oil, or water [employer] threatened to shut off services in your [...] your living situation today? I have a [facility] place to live 09/05/2023 Comments Unknown Sex and Gender Information Value Date Recorded Sex Assigned at Female 08/20/2022 9:31 PM CDT Legal Sex Female 9:27 PM GRINDER SET UP OPERATOR GEAR TOOL Gender Identity Female 08/20/2022 9:31 PM CDT [...] (Latest Contact Info) Description 03/30/2024 1:15 PM GRINDER SET UP OPERATOR GEAR TOOL Clinical Communication Virtual Review in [place], [place] 200 [place] [phone] 04/03/2024 11:30 AM GRINDER SET UP OPERATOR GEAR TOOL Office Visit Division of Pain Medicine in [address] [phone] Clara Martell APRN, CARDIOVASCULAR PHYSICIAN ASSISTANT, D.N.P. [address] [place] [phone] 04/03/2024 1:30 PM GRINDER SET UP OPERATOR GEAR TOOL Appointment Division of Pain Medicine in [place], [place] [address] [place] [phone] Lidia Morales, PLidya.-C., M.S. [address] [place] [phone] Health Maintenance Due Date Last Done Comments CT Colonography 1950 Cologuard 1950 Hepatitis C Screening 1950 Depression Screening (Annual PHQ-2) 03/29/2023 Fall Risk Screen (Annual) 03/29/2023 COVID-19 Vaccine ( season) 2023 01/09/2022, 07/23/2021, 12/23/2020, Additional history exists Mammogram 06/30/2024 07/01/2023, 04/0 06/2023, 05/13/2022, Additional history exists Fasting Glucose for Diabetes Screening 06/30/2026 07/01/2023, 09/01/2022, 05/12/2021, Additional history exists Colonoscopy 01/22/2028 01/21/2023 Colorectal Cancer Surveillance 01/22/2028 DTaP,Tdap,and Td Vaccines (3 - Td or Tdap) 06/29/2032 06/29/2022, 02/17/2012, 08/04/2006 Pneumococcal vaccine (50+ years) Completed 04/09/2016, 01/03/2015 Zoster Vaccines Completed 05/12/2021, 03/30, 11/28/2013 Bone Density Scan (Osteoporosis Screen) Discontinued 07/08/2023 Influenza Vaccine Completed 12/22/2023, , 12/03/2021, Additional history exists IPV Vaccines Aged Out No longer eligi ble based on patient's age to complete this topic Medical Devices Implanted Type Area Program Management Analyst Device Identifier Shelf Expiration Date Model / [...] 1. Sunday Russo M.D. 2. Maura Cross L.PKanchanNKanchan PROCEDURE SUMMARY Indications: peripheral neuropathy Body area: [...] fellow participated in the procedure, and the alliances consultant was present for the entire procedure. OPERATIVE NOTE INFORMATION Specimens: 0 Drains: 0 Estimated blood loss: 0 Implants: 0 Lidia Morales P.A.-C. M.S. PROCEDURE/MINOR WOODWARD RGICAL ORDERABLES Final Result from Last 3 Months Insurance MEDICARE [facility] Care Teams Displayer Merchandise Relationship Specialty Start Date End Date Elsewhere, Pcp PCP - General Internal Medicine 06/18/23
--- OUTSIDE RECORDS SUMMARY | 2024-03-30 12:21 | XMS_ITS | Encounter Summary ---
Author Organization [facility] Address [address] [place] [address] Care Team Providers Care Automotive Brake Adjuster Name Role Phone Elsewhere, Pcp Primary Care Provider Unavailabl e Reason for Visit * Reason Onset Date Comments Follow-up 02/03/2024 PM Nerve Block i njection Encounter Details Date Type Department Care Team (Latest Contact Info) Description 02/03/2024 Clinical Communication Division of Pain Medicine in [place], [place] [address] [place] [address] Lidia Morales P.A.-C., M.S. [address] [place] [address] Follow-up (PM Nerve Block injection) Social History Tobacco Use Types Packs/Day Years Used Date Smoking Tobacco: Never Smokeless Tobacco: Never Alcohol Use Standard Drinks/Week Comments Yes 2 (1 standard drink = 0.6 oz pur e alcohol) Occassionally [facility] Utilities Answer Date Recorded In the past 12 months has e electric, gas, oil, or water company threatened to shut off services in your home? No 09/05/2023 Humiliation, Afraid, Rape, and Kick questionnair e Answer Date Recorded Within the last year, have y ou been afraid of your partner or ex-partner? No 08/20/2022 Within the last year, have y ou been humiliated or emotionally abused in other ways by your partner or ex-partner? No 05 / Within the last year, have y ou [...] your living situation today? I have a [facility] place to live 09/05/2023 Comments Unknown Sex and Gender Information Value Date Recorded Sex Assigned at Female 08/20/2022 9:31 PM CDT Legal Sex Female 9:27 PM CHEMIST STEROIDS Gender Identity Female 08/20/2022 9:31 PM CDT Sexual Orientation Straight 08/20/2022 9: 31 PM CDT documented as of this encounter Miscellaneous Notes * Telephone Encounter - Daniella Wolf - 02/22/2024 3:49 PM CST Do we have a valid auth to speak with caller? yes-patient Reason for call: Patient is returning Erlinda's call. I read her Erlinda's portal message. She has decided to hold off on PNS at this time, however, she's wondering about getting another injection in herhand. At the time of her last injection in December, they were trying to decide if it should be given on the top or bottom of the hand. She's wondering once time is allotted, if she could go ahead andtry another injection on the opposite side of the hand and see if this provides her more benefit. Please follow up with her either phone call or portal message. Thank you. Thank you, Shagufta IST STEROIDS * Telephone Encounter - Almita Oswald - 02/03/2024 12:26 PM CST SUBJECTIVE CHIEF COMPLAINT / REASON FOR CALL: F/U - 12/30/2023 Nerve Block Injection Name of caller/Relationship to patient: Facility Authorization Available (if not patient calling): Yes Follow-up Requested: Yes Follow-up Method (Phone call/Portal): Phone call GOAL/SUMMARY OF CALL: catrachito Hastings's OT provider called to let us know that pt has not had an benefit from the nerve block completed 12/30/23. Darling states pt is still having pain in her left thumb and index finger, and there has not been much change since the nerve block. Darling states pt would like to know next steps. Pt would like a call back. Additional comments: Caller was notified of standard response time of 2 - 4 business days and was instructed to call back if they did not receive a response within that time frame. Caller verified that they understood over the phone. IST STEROIDS documented in this encounter Plan of Treatment Upcoming Encounters Date Type Department Care Team (Latest Contact Info) Description 03/30/2024 1:15 PM CHEMIST STEROIDS Clinical Communication Virtual Review in [place], [place] 200 [place] [phone] 04/03/2024 11:30 AM CHEMIST STEROIDS Office Visit Division of Pain Medicine in [address] [phone] Clara Martell APRN, DAMAGE ASSESSOR, D.N.P. [address] [place] [phone] 04/03/2024 1:30 PM CHEMIST STEROIDS Appointment Division of Pain Medicine in [address] [phone] Lidia Morales P.A.-C., M.S. [address] [place] [phone] documented as of this encounter Visit Diagnoses Not on filedocumented in this encounter Care Teams Automotive Brake Adjuster Relationship Specialty Start Date End Date Elsewhere, Pcp PCP - General Internal Medicine 06/18/23 documented as of this encounter
--- OUTSIDE RECORDS SUMMARY | 2024-03-30 12:21 | XMS_ITS ---
Author Organization [facility] Address [address] [place] [address] Care Team Providers Care Institutional Research Coordinator Name Role Phone Unavailable Unavailable Unavailable Surgery Details Not on file Complications Check Surgery Details section. Procedure Estimated Blood Loss Check Surgery Details section. Procedure Findings Check Surgery Details section. Procedure Specimens Taken Check Surgery Details section.
--- OUTSIDE RECORDS SUMMARY | 2024-03-30 12:21 | XMS_ITS | Encounter Summary ---
Author Organization [facility] Address [address] [place] [address] Care Team Providers Care Sales Technician Name Role Phone Elsewhere, Pcp Primary Care Provider Unavailabl e Encounter Details Date Type Department Care Team (Latest Contact Info) Description 03/01/2024 Clinical Communication Department of Physical Medicine and Rehabilitation in [place], [place] [address] [place] [address] Jonah Núñez D.O. [address] [place] [address] Social History Tobacco Use Types Packs/Day Years Used Date Smoking Tobacco: Never Smokeless Tobacco: Never Alcohol Use Standard Drinks/Week Comments Yes 2 (1 standard drink = 0.6 oz pur e alcohol) Occassionally [facility] Utilities Answer Date Recorded In the past 12 months has [facility] [employer], gas, oil, or water [employer] threatened to shut off services in your [...] your living situation today? 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 Reason for the Call: refill of DULoxetine 30 mg. Patient was having side effects from the DULoxetine: hot flashes, facial twitches, sweating. Because of those side effects, she stopped taking beginning of January. The pain is better on the medication, so patient has started taking the medication again for 2 weeks ago and does not have the facial twitches or sweating this time. When she is taking the medication, she can do more with occupational therapy, so she does feel that it is helping. Patient is getting Details/Desired Outcome: refill medication, at least 1 more month. Next Follow Up: [place] Stellate Ganglion Block Injection Left on Apr 03, 2024. Hoping that after the injection Apr 03, 2024 pain in hand will be improved. Suggested Next Steps Listed in Clinical Note: 09/10/2023 #1 Plexopathy Brachial Minimal symptom improvement with a trial of Cymbalta. I think it be reasonable to have her revisit the pain Medicine group. I think she has to the point where she is seriously contemplating either a spinal cord stimulator or peripheral nerve stimulator given her significant functional limitations associated with pain. She has undergone extensive hand therapy which has not offered ongoing benefit. I would be happy to see her back if she has not deemed a stimulator candidate. Response preference: Phone call Additional Comments: verified medication, dosage, and pharmacy IFIED FLIGHT INSTRUCTOR documented in this encounter Plan of Treatment Upcoming Encounters Date Type Department Care Team (Latest Contact Info) Description 03/30/2024 1:15 PM CERTIFIED FLIGHT INSTRUCTOR Clinical Communication Virtual Review in [place], [place] [address] [place] [address] 04/03/2024 11:30 AM CERTIFIED FLIGHT INSTRUCTOR Office Visit Division of Pain Medicine in [address] [phone] Clara Martell APRN, [employer], D.N.P. [address] [place] [phone] 04/03/2024 1:30 PM CERTIFIED FLIGHT INSTRUCTOR Appointment Division of Pain Medicine in [place], [place] [address] [place] [phone] Lidia Morales P.A.-C., M.S. [address] [place] [address] documented as of this encounter Visit Diagnoses Not on filedocumented in this encounter Care Teams Sales Technician Relationship Specialty Start Date End Date Elsewhere, Pcp PCP - General Internal Medicine 06/18/23 documented as of this encounter
--- OUTSIDE RECORDS SUMMARY | 2024-03-30 12:21 | XMS_ITS | Clinical Summary ---
Author Organization [facility] Address [place], [place] [address] Care Team Providers Care Ordnance Officer Name Role Phone Will Brian MD Unavailable [phone] Sandra Rose MD Primary Care Provider Allergies No known active allergies Medications MULTIVITAMIN TAB take 1 tablet by oral route once daily with food 0 6 Active CALCIUM + D 600 MG-200 UNIT TAB daily 0 6 Active Cholecalciferol, Vitamin D3, (VITAMIN D-3) 5,000 unit tab Take by mouth once daily. 0 5 Active VYZULTA 0.024 % drop Place 1 Drop into both eyes at bedtime. 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 Active oxyCODONE (ROXICODONE) 5 mg immediate release tabletIndications:Br achial plexus neuropathy Take 1 Tablet (5 mg) by mouth 2 times daily if needed for Pain. 30 Tablet 4 Active LORazepam (ATIVAN) 0.5 mg tabIndications:Anxie ty Take 0.5-1 Tablets (0.25-0.5 mg) by mouth once daily if needed for Anxiety. at most 3 times per week for anxiety. 12 Tablet 4 Active rosuvastatin (CRESTOR) 5 mg tabletIndications:Hy perlipidemia, unspecified hyperlipidemia type Take 1 Tablet (5 mg) by mouth at bedtime. 90 Tablet 4 4 Active esomeprazole (NEXIUM) 20 mg capsuleIndications:H istory of gastroesophageal reflux (GERD) Take 1 Capsule (20 mg) by mouth once daily before a meal. 4 Active mirtazapine (REMERON) 15 mg tabletIndications:An xiety Take 1 Tablet (15 mg) by mouth at bedtime. 90 Tablet 1 4 Active Active Problems Problem Noted Date Diagnosed Date H/O colonoscopy with polypectomy, due in 2022 Overview (01/25/2023): Rpt in 04/2022. polyps in 2017 Diverticulosis in the sigmoid colon. 3 mm polyp at the hepatic flexure - tubular adenoma Two 1 to 2 mm polyps in the rectum - hyperplastic Hemorrhoids. Colonoscopy 12/2022 hyperplastic polyp, repeat in 7 years Primary Open-Angle Glaucoma-OU 12/24/2008 Hyperopia 12/06/2008 Presbyopia 12/06/2008 Depressive disorder, not elsewhere classified Overview (09/10/2011): College, post delivery, then age 49, recurrence 61 Unspecified essential hypertension 08/04/2006 Allergic rhinitis, cause unspecified 08/04/2006 Gastroesophageal reflux disease without esophagi tis Resolved Problems Problem Noted Date Diagnosed Date Resolved Date Depression, major, single episode, moderate 04/18/2018 05/12/2021 Glaucoma suspect 12/06/2008 12/24/2008 Encounters Date Type Department Care Team Description 03/02/2024 10:30 AM SPORTS BOOKMAKER Ancillary Procedure [facility] [address] [place] [address] 03/02/2024 9:50 AM SPORTS BOOKMAKER Office Visit [facility] [place] [address] [place] [address] Jamia Real PA Pain 03/02/2024 Travel 12/29/2023 3:00 PM CDT Orders Only [facility] [place] [address] [place] [address] Lab, [facility] 12/29/2023 Travel from Last 3 Months Immunizations Name Administration Dates Next Due COVID-19 vaccine (Pfizer-Bio NTech 30mcg/0.3mL) 12YO+ ROMAN-SUCROSE PF, MDV 07/23/2021 COVID-19 vaccine (Pfizer-Bio NTech 30mcg/0.3mL) PF, MDV 06/11/2020,05/21/2020 Influenza A (H1N1), Inactivated 04/11/2009 Influenza A (H1N1), Inactiva markus (Age >=3 Years) 04/11/2009 Influenza Virus, Unspecified 01/15/2016 Influenza, High-dose Inactivated 020,12/24/2017,01/01/2017,01/14,01/03/2015 Influenza, High-dose Quadriv alent Inactivated 12/28/2022,12/03/2021,12/05/2020 Influenza, IIV3 (Age >=3 years) 11/29/19 14,01/05/2013,11/26/2011,01/21,01/09/2010,12/02/2008 Influenza, IIV4 11/29/2013 Influenza, Inactivated IIV3 (Age 65+ Years) Preserv Free 12/15/2018 Pneumococcal Poly,23-Valent (Pneumovax) 04/09/2016 Pneumococcal conj 13-Valent (Prevnar 13) 01/03/2015 RSV, Bivalent Vaccine Recons tituted (Abrysvo 120MCG/0.5mL) 01/13/2023 Td, Preservative Free (age >= 7 Years) 3,08/04/2006 Tdap 02/17/2012 Zoster (Shingrix-RZV, recombinant) 05/12/2021, Zoster (Zostavax-ZVL, live) 11/28/2013 Family History Medical History Relation Name Comments Cancer Father bone marrow Ca, ID, HTN Heart Disease Father Hypertension Father Other Father glaucoma Diabetes Mother type 1 Stroke Mother Cancer-breast Other paternal cousi n 55 y.o Other Sister glaucoma Diabetes Son Clive type 1: MD Angel Luis [employer]ard medicine, sports med - [facility] Cancer-colon No Family History Cancer-prostate No Family History Relation Name Status Comments Father (Age 68) Mother Other Sister Son Clive Social History Tobacco Use Types Packs/Day Years Used Date Smoking Tobacco: Never Passive Smoke Exposure: Never Smokeless Tobacco: Never Tobacco Cessation:Counseling Given: Not Answered Alcohol Use Standard Drinks/Week Comments Not Currently 0 (1 standard drink = 0.6 oz pur e alcohol) rarely C Utilities Answer Date Recorded Do you have trouble paying f or utilities (for example, heat, electricity, water, phone)? Yes 03/02/2024 PHQ-2 Answer Date Recorded PHQ-2 TOTAL SCORE 0 07/01/2023 Social Connections Answer Date Recorded Do you often feel lonely or isolated from those around you? 0 03/02/2024 Financial Resource Strain Answer Date R ecorded Difficulty of Paying Living Expenses 3 03/02/2024 Difficulty of Paying Living Expenses Not on file 03/02/2024 Food Insecurity Answer Date Recorded Do you worry your food will run out before you are able to buy more? 1 03/02/2024 Transportation Needs Answer Date Record ed Does lack of transportation keep you from medica l appointments? 1 03/02/2024 Does lack of transportation keep you from work, meetings or getting things that you need? 1 03/02/2024 Housing Stability Answer Date Recorded What is your housing situation today? 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 Not on file Not on file Not on file Obstetrics History Para Term AB IAB SAB Ectopic Multiple Livin g Live Births 5 4 4 1 1 4 Date Outcome GA Total Labor Labor/2nd/3rd Weight Sex Type Anes PTL Lora A1 A5 Name Clin SAB Term Term Term Term Last Filed Vital Signs Vital Sign Reading Time Taken Comments Blood Pressure 120/79 03/02/2024 9:53 AM SPORTS BOOKMAKER Pulse 68 03/02/2024 9:53 AM SPORTS BOOKMAKER Temperature 36.6 C (97.8 F) 03/02/2024 9:53 AM SPORTS BOOKMAKER Respiratory Rate 14 01/21/2023 10:03 AM CDT Oxygen Saturation 98% 03/02/2024 9:53 AM SPORTS BOOKMAKER Inhaled Oxygen Concentration - - Weight 80.3 kg (177 lb) 07/01/2023 8:15 AM CDT Height 162.6 cm (5' 4) 07/01/2023 8:15 AM CDT Body Mass Index 30.38 07/01/2023 8:15 AM CDT Plan of Treatment Health Maintenance Due Date Last Done Comments Influenza for age 65+ 11/28/2023 12/28/2022 , 12/03/2021, 12/05/2020, Additional history exists BMI (ht and wt on same day) for age 18+ 06/30/2024 07/01/2023, 10/19/2022, 06/29/2022, Additional history exists Depression screening for age 12+ 06/30/2024 07/01/2023, 05/13/2022, 05/13/2022, Additional history exists Mammogram for age 45-75 06/30/2024 07/01/19, 05/13/2022, 05/12/2021, Additional history exists Medicare Wellness for age 65+ 07/01/2024, 05/13/2022, 05/12/2021, Additional history exists Lipids for age 45-75 06/30/2028 07/01/2023, 05/13/2022, 05/12/2021, Additional history exists Colonoscopy through age 75 01/21/203001/21, 01/21/2023, 05/07/2017, Additional history exists Tetanus booster 06/29/2032 06/29/2022, 01/28, 08/04/2006 Tdap Completed 02/17/2012 Hepatitis C screening for ag e 18-79 Completed 03/08/2013 Pneumococcal series for age 50+ Completed 7, 01/03/2015 Zoster (shingles) series for age 50+ Completed 05/12/2021, 04/24/2019, 11/28/2013 RSV vaccine for adults or Completed 01/13/2023 DEXA/DXA scan for age 65+ Completed 2023, 05/12/2021, 04/15/2017, Additional history exists COVID-19 vaccine series Completed 12/22/19 24, 12/28/2022, 01/09/2022, Additional history exists Procedures Procedure Name Priority Date/Time Associated Diagnosis Comments XR RIBS LEFT AND PA CHEST MINIMUM 3 VIEWS STAT 03/02/2024 10:48 AM SPORTS BOOKMAKER Traumatic injury of rib PTH, INTACT AND CALCIUM (QUEST) Routine 12/29/2023 3:22 PM CDT T4,FREE Routine 12/29/2023 3:22 PM CDT Acute thyroiditis THYROPEROXIDASE ANTIBODY Routine 12/29/2023 3:22 PM CDT Acute thyroiditis VITAMIN D 25 (DEFICIENCY) Routine 12/29/2023 3:22 PM CDT Osteopenia with high risk of fracture TSH Routine 12/29/2023 3:22 PM CDT Osteopenia with high risk of fracture Acute thyroiditis XR DXA BONE DENSITY 2 SITES AXIAL Routine 07/08/2023 9:22 AM CDT Menopause LIPID PANEL W REFLEX MEASURED LDL Routine 07/01/2023 10:06 AM CDT Hyperlipidemia, unspecified hyperlipidemia type XR MAMMO ABENA BILAT SCREEN Routine 07/01/2023 9:45 AM CDT Visit for screening mammogram COLONOSCOPY 01/21/2023 8:40 AM CDT ANTI HCV Routine 03/08/2013 9:23 AM SPORTS BOOKMAKER Need for hepatitis C screening test from Last 3 Months or Most Recently Relevant to Health Maintenance Results * XR RIBS LEFT AND PA CHEST MINIMUM 3 VIEWS (03/02/2024 10:48 AM SPORTS BOOKMAKER) Anatomical Region Laterality Modality RIBS, RIBS L, CHEST Computed Rad iography 03/02/2024 10:5 5 AM SPORTS BOOKMAKER Impressions 03/02/2024 10:55 AM SPORTS BOOKMAKER Nondisplaced left 6th and 7th rib fractures. No pneumothorax or hemothorax. Dictated by Ivette Faustin MD @ 03/02/2024 10:55:20 AM (Electronically Signed) Narrative 03/02/2024 10:55 AM SPORTS BOOKMAKER For Patients: As a result of the Cures Act, medical imaging exams and procedure reports are released immediately into your electronic medical record. You may view this report before your referring provider. If you have questions, please contact your health care provider. INDICATION: Traumatic injury of wrist COMPARISON: Chest radiograph 11/03/2016 TECHNIQUE: Three views chest and left ribs. FINDINGS: Nondisplaced left 6th and 7th rib fractures. Hiatal hernia. Unchanged small nodule in the left lower lobe. Reticulation and scarring in the lateral right costophrenic angle. No focal or diffuse lung opacities. No pneumothorax. No pleural effusion. Heart size normal. 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 Procedure Note Ivette Faustin MD - 03/02/2024 For Patients: As a result of the s Act, medical imagingexams and procedure reports are released immediately into your electronicmedical record. You may view this report before your referring provider.If you have questions, please contact your health care provider. INDICATION: Traumatic injury of wrist COMPARISON: Chest radiograph 11/03/2016 TECHNIQUE: Three views chest and left ribs. FINDINGS: Nondisplaced left 6th and 7th rib fractures. Hiatal hernia. Unchanged small nodule in the left lower lobe. Reticulation and scarringin the lateral right costophrenic angle. No focal or diffuse lungopacities. No pneumothorax. No pleural effusion. Heart size normal. 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 IMPRESSION: Nondisplaced left 6th and 7th rib fractures. No pneumothorax orhemothorax. Dictated by Ivette Faustin MD @ 03/02/2024 10:55:20 AM (Electronically Signed) [facility] Final Result * PTH, INTACT AND CALCIUM (QUEST) (12/29/2023 3:22 PM CDT) PARATHYROID HORMONE, INTACT 41 16 - 77 pg/mL [employer] [facility] Comment: Interpretive Guide Intact PTH Calcium ------- Normal Parathyroid Normal Normal Hypoparathyroidism Low or Low Normal Low Hyperparathyroidism Primary Normal or High High Secondary High Normal or Low Tertiary High High Non-Parathyroid Hypercalcemia Low or Low Normal High CALCIUM 9.5 8.6 - 10.4 mg/dL [employer] [facility] 12/29/2023 3:22 PM CDT 12/29/2023 3:25 PM CDT Toribio Dale MD SEND OUTS Final Resu lt [email or web address] [address] [place] [address], [facility] [address] [place] [id number] * VITAMIN D 25 (DEFICIENCY) (12/29/2023 3:22 PM CDT) VITAMIN D,25-OH,TOTAL,IA 44 30 - 100 ng/mL [employer] [facility] Comment: Vitamin D Status 25-OH Vitamin D: Deficiency: <20 ng/mL Insufficiency: 20 - 29 ng/mL Optimal: > or = 30 ng/mL For 25-OH Vitamin D testing on patients on D2-supplementation and patients for whom quantitation of D2 and D3 fractions is required, the QuestAssureD(TM) 25-OH VIT D, (D2,D3), LC/MS/MS is recommended: order code 46487 (patients >2yrs). See Note 1 Note 1 For additional information, please refer to http://education.[employer])/faq/HAO550 (This link is being provided for informational/ educational purposes only.) Blood BLOOD SPECIMEN / Unknown 12/29/2023 3:22 PM CDT 12/29/2023 3:25 PM CDT Toribio Dale MD SEND OUTS Final Resu lt Performing Organization Address [facility]/ZIP Co de Phone Number [facility] [address] [place] [address], [place] [phone] [facility] [address] [facility] [place] [address] * TSH (12/29/2023 3:22 PM CDT) TSH 0.86 0.40 - 4.50 mIU/L [facility] Blood BLOOD SPECIMEN / Unknown 12/29/2023 3:22 PM CDT 12/29/2023 3:25 PM CDT Toribio Dale MD CHEMISTRY Final Resu lt Performing Organization Address [facility] Co de Phone Number [facility] [address] [facility] [place] [address], [place] [phone] [facility] [address] [facility] [place] [address] * THYROPEROXIDASE ANTIBODY (12/29/2023 3:22 PM CDT) THYROID PEROXIDASE ANTIBODIES 1 <9 IU/mL [facility] Blood BLOOD SPECIMEN / Unknown 12/29/2023 3:22 PM CDT 12/29/2023 3:25 PM CDT Toribio Dale MD SEND OUTS Final Resu lt Performing Organization Address [facility]/ZIP Co de Phone Number [facility] [address] [place] [address], [place] [phone] [facility] [address] [place] [address] * T4,FREE (12/29/2023 3:22 PM CDT) T4, FREE 1.3 0.8 - 1.8 ng/dL [facility] Blood BLOOD SPECIMEN / Unknown 12/29/2023 3:22 PM CDT 12/29/2023 3:25 PM CDT us Toribio Dale MD CHEMISTRY Final Resu lt [facility] [address] [place] [address], [facility] [address] [place] [address] * (ABNORMAL) XR DXA BONE DENSITY 2 SITES AXIAL (07/08/2023 9:22 AM CDT) Anatomical Region Laterality Modality Spine, HIPS, HIPL, HIPR Other Impressions 07/13/2023 1:39 PM CDT Osteopenia. RECOMMENDATIONS: The National Osteoporosis Foundation recommends pharmacologic treatment for patients with T-scores of -2.5 or less, patients with prior history of fragility fractures, or patients with 10-year probability of greater than 3% at hips or greater than 20% of suffering major osteoporotic fractures. Recommend continued optimization of calcium and vitamin D intake through dietary means and/or supplementation and regular exercise. Consider pharmacologic therapy for osteopenia with increased fracture risk. Follow-up bone density reading in 2 years if therapy initiated to assess therapeutic efficacy. Emma Lua PA-C [employer] [facility] 07/13/2023 Narrative 07/13/2023 1:39 PM CDT For Patients: Results are automatically released to your [employer] ([employer]) account once available, in compliance with federal regulations. This means that you may see your results before your provider has had a chance to review them. Please allow 2-3 business days for your provider to comment on the results. XR DXA Bone Mineral Density (BMD) EXAM [facility] [address] [facility] [address] PATIENT NAME: Moni Estraad DATE OF : 1950 EXAM DATE: 07/08/2023 REQUESTING PROVIDER: Sandra Rose MD GENDER AT : female HEIGHT: 5' 4 (07/01/2023) WEIGHT: 177 lb (07/01/2023) MENOPAUSAL STATUS: Postmenopausal RACE/ETHNICITY: White RISK FACTORS: Family History of Osteoporosis, Family History of Hip Fracture (parental), Height Loss (2 inches or more), History of Fragility Fracture (at a major site), and White Race CURRENT MEDICATION FOR BONE LOSS: NONE INDICATION: Menopause COMPARISON DATE(S): None DXA scans are compared to prior studies for a patient only when the two (or more) studies were performed on the same scanner. It is not possible to compare data generated on one scanner to data from another because there are not standards in DXA equipment. This applies even if the two scanners are made by the same rib chopper. PROCEDURE: Dual-energy x-ray absorptiometry performed with routine technique. Reporting is completed in the form of a T-score. The T-score represents the standard deviation from peak bone mass based on young healthy adult. A Z-score is used for diagnosis in premenopausal women, and for men under the age of 50. FINDINGS: RESULT LUMBAR SPINE L1 - L4 BMD: 0.984 g/cm2 T-Score: - 1.7 Z-Score: - 0.5 Change from prior: None RESULTS FEMUR Left femoral neck BMD: 0.837 g/cm2 T-Score: - 1.4 Z-Score: + 0.1 Change from prior: None Right femoral neck BMD: 0.775 g/cm2 T-Score: - 1.9 Z-Score: - 0.3 Change from prior: None Left hip BMD: 0.884 g/cm2 T-Score: - 1.0 Z-Score: + 0.3 Change from prior: None Right hip BMD: 0.803 g/cm2 T-Score: - 1.6 Z-Score: - 0.3 Change from prior: None WHO criteria: Normal: T-score at or above -1 SD Osteopenia: T-score between -1.1 and -2.4 SD Osteoporosis: T-score at or below -2.5 SD FRAX RISK CALCULATION (USED FOR OSTEOPENIA ONLY): 10-year probability of major osteoporotic fracture: 29.3%. 10-year probability of hip fracture: 14.3%. Sandra Rose MD DEXA Final Result * LIPID PANEL W REFLEX MEASURED LDL (07/01/2023 10:06 AM CDT) [facility] CHOLESTEROL,TOTAL 163 100 - 199 mg/dL 07/01/2023 12:39 PM CDT [facility] Comment: Cholesterol, Total Reference Ranges Desirable <200 mg/dL Borderline 200-239 mg/dL High >=240 mg/dL TRIGLYCERIDES 77 <150 mg/dL 07/01/2023 12:39 PM CDT [facility] HDL CHOLESTEROL 71 >40 mg/dL 12:39 PM CDT [facility] NON-HDL CHOLESTEROL 92 <145 mg/dl 07/01/2023 12:39 PM CDT [facility] CHOL/HDL RATIO 2.30 <4.50 07/01/2023 12:39 PM CDT [facility] LDL CHOLESTEROL 77 <=130 mg/dL 07/01/2023 12:39 PM CDT [facility] VLDL CHOLESTEROL 15 <=30 mg/dL 07/01/2023 12:39 PM CDT [facility] PROVIDER ORDERED STATUS FASTING 07/01/2023 12:39 PM CDT [facility] Blood BLOOD SPECIMEN / Unknown Venipuncture / Unknown 07/01/2023 10:06 AM CDT 07/01/2023 10:14 AM CDT us Sandra Rose MD CHEMISTRY Final Result [facility] [address] [place] [address] * XR MAMMO ABENA BILAT SCREEN (07/01/2023 9:45 AM CDT) Anatomical Region Laterality Modality BREASTS, Breast Left, Breast Right Bilateral Mammography Impressions 07/01/2023 9:55 AM CDT There is no radiographic evidence for malignancy. Recommend annual mammograms. MAMMOGRAM ASSESSMENT: ACR 1 Negative PATIENTS: You will also receive a letter with your examination results in an easy to read format. If you have questions about your results, please contact your referring provider. Narrative 07/01/2023 9:55 AM CDT For Patients: As a result of the Cures Act, medical imaging exams and procedure reports are released immediately into your electronic medical record. You may view this report before your referring provider. If you have questions, please contact your health care provider. XR MAMMO ABENA BILAT SCREEN [[id number]] CLINICAL HISTORY: This is an asymptomatic 73 y.o. patient. INDICATION FOR EXAM: Mammogram Screening. TECHNIQUE: CC & MLO views were obtained. This study was evaluated with the assistance of Computer-Aided Detection. Breast Tomosynthesis was used in interpretation. COMPARISON FILM: Yes 05/13/22 [facility] 05/12/21 [facility] FINDINGS: The breasts have scattered areas of fibroglandular density. There are no dominant masses, suspicious micro calcifications or areas of architectural distortion. us Sandra Rose MD MAMMO Final Result * COLONOSCOPY (01/21/2023 8:40 AM CDT) 01/21/2023 8:40 AM CDT Narrative Transcriptions Andre Horne MD - 01/21/2023 9:49 AM CDT Patient Name: Moni Estrada Procedure Date: 01/21/2023 Gender: Female Date of : 1950 Admit Type: Outpatient Procedure: Colonoscopy Proceduralist: Andre Horne MD , Olga Bennett (Nurse), Deepali Pierce (Nurse) Indications/Pre-Op Diagnosis: High risk colon cancer surveillance:Personal history of adenoma less than 10 mm in size, Last colonoscopy: April 2017 Medications: Fentanyl 100 micrograms IV, Midazolam 2 mgIV, The level of sedation administered wasmoderate Procedure Description: The patient had risks, benefits and alternatives explained to andgave informed consent. The patient had a stable cardiopulmonary status and judged an adequate candidate for conscious sedation. The endoscope [id number]-[id number] was passed through the anus andadvanced to the cecum, identified by appendiceal orifice and ileocecal valve.The colonoscopy was performed without difficulty. The patient toleratedthe procedure well. The quality of the bowel preparation was good. The ileocecal valve, appendiceal orifice, and rectum were photographed. Complications: No immediate complications. Estimated Blood Loss & Specimen: Estimated blood loss: none. Specimen collected - Yes and sent to Laboratory Findings: The perianal and digital rectal examinations were normal. Two sessile polyps were found in the rectum. The polyps were 2 mm in size. These polyps were removed with a cold biopsy forceps. Resection and retrieval were complete. Scattered large-mouthed and small-mouthed diverticula were found inthe sigmoid colon and descending colon. The exam was otherwise without abnormality. Impressions/Post-Op Diagnosis: - Two 2 mm polyps in the rectum, removed with a cold biopsy forceps. Resected and retrieved. - Diverticulosis in the sigmoid colon and in the descending colon. - The examination was otherwise normal. Recommendation: - Patient has a contact number available for emergencies. The signsand symptoms of potential delayed complications were discussed with the patient. Return to normal activities tomorrow. Written discharge instructions were provided to the patient. - Patient has a contact number available for emergencies. The signsand symptoms of potential delayed complications were discussed with the patient. Return to normal activities tomorrow. Written discharge instructions were provided to the patient. - Resume previous diet. - Continue present medications. - Await pathology results. - Repeat colonoscopy is recommended. The colonoscopy date will be determined after pathology results from today's exam become available for review. Moderate Sedation: A time out was performed before the procedure. Moderate (conscious) sedation was administered by the endoscopy nurse and supervised bythe endoscopist. The following parameters were monitored: oxygensaturation, heart rate, blood pressure, EKG, CO2, respiratory rate, adequacy of pulmonary ventilation and reponse to care. Please refer to the patient's medical record flowsheets and nursing notes for moderate sedation details. Total physician intraservice time was 17 minutes. Andre Horne MD 01/21/2023 9:49:11 AM This report has been signed electronically. Note Initiated On: 01/21/2023 8:40 AM Procedure Code(s): --- Professional --- [address], Colonoscopy, flexible; with biopsy, single or multiple Diagnosis Code(s): --- Professional --- Z86.010, Personal history of colonicpolyps D12.8, Benign neoplasm of rectum K57.30, Diverticulosis of large intestine without perforation or abscess withoutbleeding CPT copyright 2021 [employer]. All rights reserved. The codes documented in this report are preliminary and upon bilingual sales representative reviewmay be revised to meet current compliance requirements. Scope In: 9:28:56 AM Scope Withdrawal Time 0 hours 11 minutes 5 seconds Scope Out: 9:44:08 AM us Andre Horne MD PROCEDURE ORD Final Res ult * ANTI HCV [52586.2] (03/08/2013 9:23 AM SPORTS BOOKMAKER) ANTI HCV Non-reacti ve [facility] Blood specimen (specimen) BLOOD SPECIMEN / Unknown 03/08/2013 9:23 AM SPORTS BOOKMAKER 03/08/2013 9:12 AM SPORTS BOOKMAKER us Sandra Rose MD SEND OUTS Final Result 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 Healthcare Directive 05/11/2017 8:25 AM SH [place] 05/06/17 * Full Code (Latest Code Status on File) Date Activated Date Inactivated Comments 05/07/2017 8:27 AM 05/07/2017 1:09 PM * Full Code Date Activated Date Inactivated Comments 11/06/2016 7:31 AM 11/06/2016 11:37 AM * Full Code Date Activated Date Inactivated Comments 05/12/2012 8:26 AM 05/13/2012 2:22 AM * Full Code Date Activated Date Inactivated Comments 04/08/2012 7:06 AM 04/09/2012 2:14 AM * Full Code Date Activated Date Inactivated Comments 12/09/2009 11:25 AM 12/10/2009 2:25 AM Care Teams Ordnance Officer Relationship Specialty Start Date End Date Sandra Rose MD [address] [address] PCP - General Family Practice 06/30/23 Will Brian MD Ophthalmology Ophthalmology Surgery 04/04/15
--- NOTE | 2024-03-30 18:12 | OT.OPODN ---
OT Outpatient Ortho Daily Note OT Outpatient Ortho Daily Note* Start: 08/18/23 12:09 Freq: Status: Active Protocol: Document 04/04/24 17:24 AMB (Rec: 04/04/24 17:35 AMB [email or web address]) E-signed By Radha Dickinson, OTR/L, CLT, CLINICAL DATA MANAGER Type of Note Type of Note Type of Note Daily Note Visit Number [id number] Comments Recert due 06/28/24 04/04/24 Pt received Stellate Ganglion Block, ordered by Lidia Morales PA-C, administered by Buddy Diez MD. 02/29/24 Pt received return call from [facility], next steps would be peripheral nerve stimulator or stellate ganglion block. 02/03/24 Spoke with Orlin at the pain clinic regarding minimal change with nerve block. She will leave a message with EARLINE Alexis (ordering provider for the nerve block). Someone with call patient back in 2-4 business days. If you haven?t heard from anyone, you can call this number: [phone] . The pain clinic number is [phone]. Per last MD visit: 1. Pt will have a nerve block (radial and median) with steroid with the hopes of 3-4 months of pain relief / benefit. This is scheduled for 12/30/23 2. If this is helpful for 3-4 months then they will repeat the injection. If she gets temporary relief, then they will proceed to #3, if no benefit then they will proceed to #4. 3. Peripheral Nerve Stimulation (Temporary) with Dr Braun. 4. Stellate Ganglion Block 5. Possible Spinal Cord Stimulation (permanent). [ End ] Insurance Information Insurance Information Medicare B Insurance Information Comments [facility] #[id number] Dr Echavarria Neurology Dr Núñez DO Dr Mathias Her Outpatient History/Precautions Current Condition/Medical Diagnosis Referring Provider Dr Lee Medical Diagnoses LUE wrist DR aly s/p ORIF, CTR, nerve injury Treatment Diagnosis Pain, weakness, limited AROM of the LUE Date of Onset DOI: 06/29/22, DOS: 07/01/22, CTR = 07/22/22 Other Precautions . Other Conditions PMH is relatively unremarkable but includes kidney stones. Pt tripped on 06/29/22 while walking her dog sustaining a LUE DR aly. Pt underwent ORIF with Dr Lee on 07/01/22. She returned to Ortho on 07/09 with complaints of buring / nerve pain in the shoulder and elbow. It was thought to be related to prolonged sling use and not moving her arm, cast was replaced and pt was encouraged to move shoulder, elbow and fingers. Pt returned on the with more discomfort in shoulder, elbow , hand. Dr Rubio suspected abnormal nerve response from the nerve block, cast was modified, she returned again on the , still no better. It was thought that maybe she had developed median nn compression so Dr Lee performed a CTR on 07/22/22. Medical/Functional History Medical History Reviewed Yes Prior Level of Function/Mobility Full, pain-free use of her LUE Social History Employment Status Retired Hobbies Grandchildren's activities, cooking, Punctil Fitness Pt attends senior exercise classes Oriented Mental Status No Concerns Ortho Subjective Subjective Subjective Pt states she was supposed to have her stellate ganglion block yesterday at [facility], but they did not tell her that she was supposed to be NPO, so she had to return today. Pt is just getting home from her procedure and stopped for therapy first. Pt is slightly groggy from her procedure. Pt does not recall that they gave her any precautions other than she should not eat for several hours. Discussed that we would keep her session brief today as she should really go home to recover and rest, pt agreeable. OT OP Daily Ortho Note/Assessment Manual Therapy Manual Therapy Minutes (minutes) 15 Manual Therapy Comments Completed MT with focus on AROM, AAROM, and PROM of the LUE hand, all joints of all fingers as well as the wrist and forearm. Initially provided individual joints then progressing to composite flexion of all digits. Pt had pain with mobilization of the thumb and IF, minimal discomfort with the remaining digits. Total Occupational Therapy Time Occupational Therapy Minutes 15 Home Program Home Program Home Program Compliant Home Program Specifics 02/22/24 Pt has extensive HEP for AROM, AAROM and PROM of LUE fingers, thumb, and wrist. Pt also has static finger flexion splint with focus on provided LLPS for finger flexion with blocking at PIPJ, Pt is no longer using the Bennik. Goniometric Comments Goniometric Comments Goniometric Comments AROM of the LUE hand is as follows: IF: MP=80, PIP=55, DIP=18 MF: MP=80, PIP=90, DIP=15 RF: MP=90, PIP=68, DIP=25 SF: MP=85, PIP=55, DIP=40 Thumb: MP=30, IP=15, radial abd is 0, palmar abd is 45. PROM of the LUE is as follows: IF: MP=85, PIP=75, DIP=30 MF: MP=90, PIP=95, DIP=30 RF: MP=95, PIP=90, DIP=40 SF: MP=95, PIP=90, DIP=55 Thumb: MP=35, IP=20, radial abd is 10 , palmar abd is 55. 10/06/23 AROM of the LUE hand is as follows: IF: MP=65, PIP=50, DIP=15 MF: MP=90, PIP=70, DIP=24 RF: MP=85, PIP=55, DIP=30 SF: MP=90, PIP=55, DIP=35 Thumb: MP=30, IP=15, radial abd is 0, palmar abd is 45. 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 OT Objective Data Observations/Posture/Limb Appearance Objective Observations 02/22/24 Pt's LUE hand shows significant atrophy throughout , especially noted in the thenar and hypothenar eminences. Swelling has been minimal in the past 2-3 months . Pt continues to have significant pain which limits ability to stretch / mobilize her finger joints, especially the IF and the thumb on the LUE. 07/15/23 Pt does well with posture and mobility, hand posture is still affected by limited nerve function and resultant weakness / atrophy. 04/08/23 Pt demonstrates improved posture with all tasks, shoulder and elbow move in nicole, in a natural flow with her gait pattern, forearm is supinated, finger and thumb are very stiff. 12/11/22 Pt is now able to use a modified but functional pincher grasp to diamond picker and stack 3 dice, also able to perform resisted pinch strength with a yellow clothes pin. 10/23/22 Pt is now able to tolerate PROM of the LUE including pressure and skin manipulation, she has been able to use a static progression flexion glove for LLPS of the 2nd-5th digits, initially pt was not able to tolerate compression glove and very little tissue manipulation. 09/08/22 Pt is much less guarded, improved ability to move arm with natural pattern during gait, less guarded. 07/24/22 Pt demonstrates very guarded posture, forward shoulders, RUE adducted with shoulder IR, elbow flexed, hand and forearm in rigid splint, RUE in sling. Pt experiences pain with most movement out of this position, especially at the shoulder. Skin/Wounds/Edema Comments 02/22/24 Swelling is significantly better, skin color and texture is at or near baseline. 07/15/23 No concerns 04/08/23 Skin condition is good , no abrasions or breakdown, color is somewhat flushed when compared to RUE. 09/08/22 CTR and ORIF incisions are well healed. 07/24/22 ORIF incision is healing, still covered with surgical film. CTR incision is still closed with sutures. No draining from either site, no abnormal redness, no s/s of infection. Sensation Sensation Assessment Summary Comments 02/22/24 Monofilament detection at fingertips: Th is 3.61, IF is 3.61, MF is 3.61, RF is 2.83 and SF is 2.83. OT Problems Problems Problems Decreased Strength,Decreased Range of Motion,Decreased Dexterity,Pain,Decreased Coordination,Sensory Sensitivity,Lifting,Gripping, Pinching Other Problems Opening Containers,Dressing, Computer,Fasteners,Sleeping Patient Potential Good Assessment Assessment Assessment Kept session short today as pt came straight from her stellate ganglion procedure. Occupational Therapy Treatment Plan - OP Potential Rehabilitation Potential Good Barriers Barriers to goal attainment Severe nerve damage following ORIF of [facility] in June of 2022. Set Goals Goals Set with Patient Yes Goals Goals Goals remain appropriate ( reviewed 02/22/24) 1. Pt will be independent and compliant with HEP in order to resume full, pain-free use of the involved UE. 3 weeks. This goal in ongoing, pt is compliant with HEP and all clinic visits and recommendations. 2. Pt will verbalize a reduction of her average pain from a current 10/10 to no greater than a 2/10 in order to improve ability to sleep and to increase ability to use her LUE during ADLs and IADLs . This goal has been partially met, but is also is ongoing, pt has really been struggling with pain in her IF and thumb, she has underlying issue of advanced CMC OA on top of the nerve pain. Currently, average pain is 6-7/10 but still can be a high as 10/10. Pt will be having a nerve block injection at [facility] next week, hopeful that this will help with pain control. 3. Pt will demonstrate full, pain-free AROM of the involved UE in order to improve ability to grasp and hold. 10 weeks. Pt continues to show slow but steady progress with full AROM of the LUE shoulder and elbow, she is showing some active PIP ext and more active MP extension at this point. She is using her Benik splint when pain allows to assist with functional extension during ADLs and IADLs. This goal remains appropriate. 4. 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 16 weeks. This goal remains appropriate. Nutrition Professor strength has actually decreased since last PN due to severe pain in thumb and index finger. Target Date 07/08/23 Treatment Plan Treatment Plan Evaluation,Edema Control,Joint Mobilization,Manual Therapy, Splinting,Ultrasound, Therapeutic Exercise, Therapeutic Activities,Self Care/Home Management,Production Gear Cutter Training,Education,NMES, Neuromuscular Reeducation Expected Frequency 1-2x Week Expected Duration 12 - 16 wk Occupational Therapy Billing Units Treatment Minutes Timed Treatment Minutes 15 Total Treatment Minutes 15 Billing Units Manual Therapy 1 Therapeutic Exercise 1 Certification Statement Certification Statement I Certify That: Therapy Services Provided, Therapy Plan Established, Therapy Plan Reviewed
--- NOTE | 2024-06-29 18:03 | OT.OPODN ---
OT Outpatient Ortho Daily Note OT Outpatient Ortho Daily Note* Start: 08/18/23 12:09 Freq: Status: Active Protocol: Document 06/29/24 08:21 AMB (Rec: 06/29/24 18:02 AMB [id number]) E-signed By Radha Dickinson, OTR/L, CLT, 1ST PRESSMAN Type of Note Type of Note Type of Note Daily Note,Recert/Progress Note Visit Number [id number] Comments 05/09/24 10th visit PN Recert due 06/28/24 04/04/24 Pt received Stellate Ganglion Block, ordered by Lidia Morales PA-C, administered by Buddy Diez MD. 02/29/24 Pt received return call from [place], next steps would be peripheral nerve stimulator or stellate ganglion block. 02/03/24 Spoke with Orlin at the pain clinic regarding minimal change with nerve block. She will leave a message with EARLINE Alexis (ordering provider for the nerve block). Someone with call patient back in 2-4 business days. If you haven?t heard from anyone, you can call this number: [phone] . The pain clinic number is [phone]. Per last MD visit: 1. Pt will have a nerve block (radial and median) with steroid with the hopes of 3-4 months of pain relief / benefit. This is scheduled for 12/30/23 2. If this is helpful for 3-4 months then they will repeat the injection. If she gets temporary relief, then they will proceed to #3, if no benefit then they will proceed to #4. 3. Peripheral Nerve Stimulation (Temporary) with Dr Braun. 4. Stellate Ganglion Block 5. Possible Spinal Cord Stimulation (permanent). [ End ] Insurance Information Insurance Information Medicare B Insurance Information Comments [facility] #[id number] Dr [place] Neurology Dr Niya Mathias Her Outpatient History/Precautions Current Condition/Medical Diagnosis Referring Provider Dr Lee Medical Diagnoses LUE wrist DR aly s/p ORIF, CTR, nerve injury Treatment Diagnosis Pain, weakness, limited AROM of the LUE Date of Onset DOI: 06/29/22, DOS: 07/01/22, CTR = 07/22/22 Other Precautions . Other Conditions PMH is relatively unremarkable but includes kidney stones. Pt tripped on 06/29/22 while walking her dog sustaining a LUE DR fx. Pt underwent ORIF with Dr Lee on 07/01/22. She returned to Ortho on 07/09 with complaints of buring / nerve pain in the shoulder and elbow. It was thought to be related to prolonged sling use and not moving her arm, cast was replaced and pt was encouraged to move shoulder, elbow and fingers. Pt returned on the with more discomfort in shoulder, elbow , hand. Dr Rubio suspected abnormal nerve response from the nerve block, cast was modified, she returned again on the , still no better. It was thought that maybe she had developed median nn compression so Dr Lee performed a CTR on 07/22/22. Medical/Functional History Medical History Reviewed Yes Prior Level of Function/Mobility Full, pain-free use of her LUE Social History Employment Status Retired Hobbies Grandchildren's activities, cooking, [employer] Pt attends senior exercise classes Oriented Mental Status No Concerns Ortho Subjective Subjective Subjective Pt returns from her extended vacation in [place]. Pt states her did his best to stretch her hand. Pt feels she is doing ok. Pt states It was 2 years ago today since my injury. Pt reflected on the fact that she really has come a long way. Pt will set up appointment for re-check with neurology in August for repeat EMG. Pt states she feels her pain has been less intense and occurs with less frequency; her thumb is still the most painful. OT OP Daily Ortho Note/Assessment Therapeutic Exercise Therapeutic Exercise Minutes (minutes) 16 Therapeutic Exercise Comments Review of HEP. Pt completed isolated joint flexion stretch for PIPJ of each finger and then the DIPJ of each finger and then composite finger flexion stretch of each individual finger. Practiced picking up various sized objects with focus on normalized grasp and pinch patterns, resisted gripping with tennis ball 15 reps and with red foam tubing to promote flexion of PIPJ and DIPJ 10 reps x 2. [ End ] Therapeutic Activity Therapeutic Activity Minutes (minutes) 7 Therapeutic Activity Comments Re-assessment of ROM/strength/ sensation. Manual Therapy Manual Therapy Minutes (minutes) 28 Manual Therapy Comments Provided AAROM and PROM of the LUE hand, all joints of all digits, also AROM / PROM to LUE wrist and forearm. Provided percussion / vibration with massage gun for desensitization. Pt also having some significant tightness in her neck, specifically left side. Pt does have significant tightness in her left UT with difficulty with right SB. Provided light TPR and manual stretch to her left UT with some relief. Also instructed pt in a UT stretch with right hand stabilizing on bottom of chair to eliminate shoulder hike with left SB. This also brought some relief. Issued inst for UT stretch at home as well. [ End ] Total Occupational Therapy Time Occupational Therapy Minutes 51 Home Program Home Program Home Program Compliant Home Program Specifics 02/22/24 Pt has extensive HEP for AROM, AAROM and PROM of LUE fingers, thumb, and wrist. Pt also has static finger flexion splint with focus on provided LLPS for finger flexion with blocking at PIPJ, Pt is no longer using the Bennik. Goniometric Comments Goniometric Comments Goniometric Comments 06/29/24 AROM of the LUE hand is as follows: IF: MP=85, PIP=60, DIP=30 MF: MP=92, PIP=5-80, DIP=28 RF: MP=90, PIP=5-74, DIP=32 SF: MP=90, PIP=70, DIP=50 Thumb: MP=40, IP=30, radial abd is 20 , palmar abd is 40. PROM of the LUE is as follows: IF: MP=85, PIP=75, DIP=30 MF: MP=90, PIP=95, DIP=30 RF: MP=95, PIP=90, DIP=40 SF: MP=95, PIP=90, DIP=55 Thumb: MP=35, IP=20, radial abd is 10 , palmar abd is 55. Hand Pinch/Assistant Cross Country Coach Strength Hand Pinch/Assistant Cross Country Coach Strength Hand Pinch/Assistant Cross Country Coach Strength Left Hand,Right Hand Left Hand Assistant Cross Country Coach Strength Position 1 in Elbow 28 Flexion (lbs) Lateral Pinch Strength (lbs) 6 Three Point Pinch (lbs) 6 Right Hand Assistant Cross Country Coach Strength Position 1 in Elbow 59 Flexion (lbs) Lateral Pinch Strength (lbs) 14 Three Point Pinch (lbs) 13 Comments Comments 04/10/24 Pt continues to have significant pain 7/10 in the LUE with break up worker and pinch strength testing. 02/22/24 Pt is unable to tolerate break up worker or pinch strength testing as this causes significant pain in her thumb and IF. OT Objective Data Observations/Posture/Limb Appearance Objective Observations 02/22/24 Pt's LUE hand shows significant atrophy throughout , especially noted in the thenar and hypothenar eminences. Swelling has been minimal in the past 2-3 months . Pt continues to have significant pain which limits ability to stretch / mobilize her finger joints, especially the IF and the thumb on the LUE. 07/15/23 Pt does well with posture and mobility, hand posture is still affected by limited nerve function and resultant weakness / atrophy. 04/08/23 Pt demonstrates improved posture with all tasks, shoulder and elbow move in nicole, in a natural flow with her gait pattern, forearm is supinated, finger and thumb are very stiff. 12/11/22 Pt is now able to use a modified but functional pincher grasp to pickle pumper and stack 3 dice, also able to perform resisted pinch strength with a yellow clothes pin. 10/23/22 Pt is now able to tolerate PROM of the LUE including pressure and skin manipulation, she has been able to use a static progression flexion glove for LLPS of the 2nd-5th digits, initially pt was not able to tolerate compression glove and very little tissue manipulation. 09/08/22 Pt is much less guarded, improved ability to move arm with natural pattern during gait, less guarded. 07/24/22 Pt demonstrates very guarded posture, forward shoulders, RUE adducted with shoulder IR, elbow flexed, hand and forearm in rigid splint, RUE in sling. Pt experiences pain with most movement out of this position, especially at the shoulder. Skin/Wounds/Edema Comments 04/10/24 Swelling is minimal 02/22/24 Swelling is significantly better; skin color and texture is at or near baseline. 07/15/23 No concerns 04/08/23 Skin condition is good , no abrasions or breakdown, color is somewhat flushed when compared to RUE. 09/08/22 CTR and ORIF incisions are well healed. 07/24/22 ORIF incision is healing, still covered with surgical film. CTR incision is still closed with sutures. No draining from either site, no abnormal redness, no s/s of infection. Sensation Sensation Assessment Summary Comments 06/29/24 Monofilament detection at fingertips: Th is 3.61, IF is 3.61, MF is 2.83, RF is 2.83 and SF is 2.83. Monofilament detection at fingertips: Th is 3.61, IF is 3.61, MF is 2.83, RF is 2.83 and SF is 2.83. 02/22/24 Monofilament detection at fingertips: Th is 3.61, IF is 3.61, MF is 3.61, RF is 2.83 and SF is 2.83. Upper Extremity Special Tests Upper Extremity Special Tests Comments Comments 06/29/24 Pt completes the 9 hole peg test in 22 seconds with the RUE and 1'12 sec with the LUE. OT Problems Problems Problems Decreased Strength,Decreased Range of Motion,Decreased Dexterity,Pain,Decreased Coordination,Sensory Sensitivity,Lifting,Gripping, Pinching Other Problems Opening Containers,Dressing, Computer,Fasteners,Sleeping Patient Potential Good Assessment Assessment Assessment Pt continues to put forth great effort and compliance with her HEP including stretching, progressive splinting, strengthening and incorporating her LUE in ADLs and IADLs much as she can. She still struggles with significant pain in her LUE hand, especially her thumb and IF. Pt has residual stiffness which requires ongoing therapy services for mobilization and progression as she continues to work through her nerve injury. Pt has had a stellate ganglion block in March, she may undergo a second one and will benefit from continued skilled OT services to advance her home program as well as to provide adjustments to her custom splint as needed. She is also benefitting from aggressive AAROM and PROM to improve tendon length which will allow for improved functional use of her LUE. Without skilled OT services, pt is at risk for hand contractures and decline in functional use of the LUE. Pt will have f/u with neurology for additional EMG in the next few weeks. [ End ] Occupational Therapy Treatment Plan - OP Potential Rehabilitation Potential Good Barriers Barriers to goal attainment Severe nerve damage following ORIF of LUE in June of 2022. Set Goals Goals Set with Patient Yes Goals Goals Goals remain appropriate ( reviewed 06/29/24) 1. Pt will be independent and compliant with HEP in order to resume full, pain-free use of the involved UE.3 weeks. 06/29is goal in ongoing, pt is compliant with HEP and all clinic visits and recommendations. Pt's has also been instructed in assisting with PROM at home. 2. Pt will verbalize a reduction of her average pain from a current 10/10 to no greater than a 2/10 in order to improve ability to sleep and to increase ability to use her LUE during ADLs and IADLs . 06/29/24 This goal has been partially met, Pain intensity levels and frequency have decreased with the stellate ganglion block. Pt's pain levels are verbalized at 7-5-6 /10 at the worst now, with pain in her IF and thumb, she has underlying issue of advanced CMC OA on top of the nerve pain. 3. Pt will demonstrate full, pain-free AROM of the involved UE in order to improve ability to grasp and hold. 10 weeks. 06/29/24 Pt continues to show slow but steady progress with full AROM of the LUE shoulder and elbow, she is showing full active PIP ext and full active MP extension at this point, however, she is limited in her ability to complete fist due to severe tightness in her extensors limiting flexion at PIP and DIP joints. She is using static finger flexion splint and static thumb IP flexion splint to assist with functional extension during ADLs and IADLs. This goal remains appropriate. 4. Pt will demonstrate pain- free break up worker and pinch strength comparable to the uninvolved side in order to improve functional grasp, hold, reach, and lifting ability needed to complete self-care, leisure tasks, and work activities. 16 weeks. 06/29/24 This goal remains appropriate. Target Date 07/08/23 Treatment Plan Treatment Plan Evaluation,Edema Control,Joint Mobilization,Manual Therapy, Splinting,Ultrasound, Therapeutic Exercise, Therapeutic Activities,Self Care/Home Management,Blasting Contract Miner Training,Education,NMES, Neuromuscular Reeducation Expected Frequency 1-2x Week Expected Duration 12 - 16 wk Occupational Therapy Billing Units Treatment Minutes Timed Treatment Minutes 51 Total Treatment Minutes 51 Billing Units Manual Therapy 2 Therapeutic Exercise 1 Certification Statement Certification Statement I Certify That: Therapy Services Provided, Therapy Plan Established, Therapy Plan Reviewed Recertification Information Recertification Information Initial Certification Date 07/24/22 Recertification Start Date 06/29/24 Recertification Due Date 09/27/24 Reasons to Continue Skilled Therapy To spite significant improvements in ROM, strength, and pain levels in the LUE, pt continues to have deficits in all of these areas which impair her ability to use her LUE for higher level ADLs and IADLs that require gripping and pinching. She is also still having moderate pain in her left had with gripping and pinching, especially in her IF and thumb. Pt will have follow-up visit with neurology and may have further intervention such as additional stellate ganglion block. Pt remains motivated to continue. She will require the skilled services of OT to address updates to her HEP, splinting, and for in clinic MT, TE, TA, and neuromuscular re-education. Rehabilitation Potential Good Click To Default 'Per treatment plan' Per treatment plan Continued Plan of Care and Interventions Per treatment plan Provider Signature Required Yes Provider Signature Shows Agreement With POC & Medical Necessity Physician NPI Number Write NPI# Here Physician Comment/Change Comment or Changes Physician Signature & Date Requested Please Sign/Date Here
== END 2024-11-15 12:25 | disposition home or self-care (01) ==
PROVIDERS: Visit Provider Orthopaedic Surgery Sports Medicine
DX: S62.102D Fracture of unspecified carpal bone, left wrist, subsequent encounter for fracture with routine healing (principal); Z48.89 Encounter for other specified surgical aftercare; Z51.89 Encounter for other specified aftercare
CPT/HCPCS: 96365; 97032; 97033; 97035; 97110; 97112; 97140; 97165; 97166; 97530; 97535; J2930; J7050; L3806; L3906; L3913; X5282